=== PATIENT | female | born 1950 | race Caucasian/White ===

== ENCOUNTER → 2016-06-29 | Outpatient (CLI) | payer BC ==
--- NOTE | 2016-06-29 11:29 | US ---
EXAMINATION TYPE: US abdomen complete DATE OF EXAM: 06/29/2016 11:07 AM COMPARISON: CT on PACS CLINICAL HISTORY: R10.9 Abd Pain. mid abd pain with nausea x 3 days; prior Whipple procedure via midl ine abd incision; gallbladder removed EXAM MEASUREMENTS: Liver Length: 11.5 Gallbladder Wall: Surgically absent CBD: 0.4m Spleen: 8.8m Right Kidney: 9.5 x 4.1 x 3.7cm Left Kidney: 9.8 x 4.4 x 4.5cm Findings: Pancreas: wnl Liver: homogeneous with periportal wall brightness Gallbladder: Surgically absent Evidence for sonographic Toribio's sign: No CBD: wnl Spleen: wnl Right Kidney: mid cortical cyst = 1.0 x 0.9 x 0.9cm Left Kidney: No hydronephrosis or masses seen Upper IVC: wnl Abd Aorta: size is wnl; intimal wall changes noted mid aorta and in left JOJO At patient's area of complaint bowel gas is noted. The liver is homogenous. The intrahepatic portion of the IVC and proximal abdominal aorta are within normal limits. The gallbladder is surgically absent. Common bile duct is unremarkable. The visualiz ed portions of the pancreas are homogenous. The spleen is unremarkable. Kidneys are symmetric and f ree of hydronephrosis. IMPRESSION: 1. simple cyst right kidney.
== END | disposition home or self-care (01) ==
LOC: RADUSWWP 09:52
PROVIDERS: ATTEND Family Medicine
DX: N28.1 Cyst of kidney, acquired (principal); R10.9 Unspecified abdominal pain
CPT/HCPCS: 76700

== ENCOUNTER 2016-07-21 09:55 | Day surgery (SDC) | payer BC ==
[2016-07-19 09:17] VITALS: BMI 20.3
[~2016-07-21 09:55] MED LIST: LACTATED RINGERS 1,000 ML IV SCH; LIDOCAINE 1% 20 ML VIAL (10MG/ML) FOR IV START INTRADERMA PRN
[2016-07-21 10:30] VITALS: RESP 16; TEMP 97.4
[2016-07-21] MEDS ORDERED: LIDOCAINE 1% INJ 10MG/ML (20 ML MDV) ONE (10:52)
[2016-07-21] MEDS ORDERED: PROPOFOL 10 MG/ML 20 ML VIAL IV ONE (10:52)
--- NOTE | 2016-07-21 11:09 | P.PCN ---
Date of Procedure: 07/21/16 Procedure(s) Performed: BRIEF HISTORY: Patient is a 65-year-old, pleasant, white female, scheduled for an upper endoscopy as a part of evaluation of epigastric pain for the last few years duration. The patient has prior history of Whipple surgery for duodenal ampullary adenoma in 2010. Since then she is been having intermittent episodes of epigastric discomfort and is being maintained on proton pump inhibitors on and off for the last 3 years. PROCEDURE PERFORMED: Esophagogastroduodenoscopy with biopsy. PREOPERATIVE DIAGNOSIS: Epigastric pain IV sedation per anesthesia. PROCEDURE: After informed consent was obtained, the patient was brought into the endoscopy unit. IV conscious sedation was administered by Anesthesia under continuous monitoring. Initially the Olympus GIF-140 video endoscope was inserted into the mouth. Esophagus intubated without any difficulty. It was gradually advanced into the stomach and there was evidence of distal antrectomy noted. The anastomosis showed mild irritation and erythema of the mucosa and biopsies were done from this area. The Vasyl-en-Y anastomosis appeared normal and the afferent and efferent loops also appeared normal.at this time the scope was withdrawn into the stomach, and upon careful examination, mucosa of the body , cardia and the fundus and mild gastritis and biopsies were also done from this area. The scope was then withdrawn into the esophagus. The GE junction was located at 39 cm from the incisors. The esophagus appeared normal. There were no erosions or ulcerations seen and the patient tolerated the procedure well. IMPRESSION: 1. Mild diffuse gastritis 2. Evidence of prior distal antrectomy with Vasyl-en-Y anastomosis appears normal. RECOMMENDATIONS: The findings of this examination were discussed with the patient as well as her family. She was advised to follow with the biopsy results. Centimeter she will continue with the current medications and follow antireflux measures.
[2016-07-21 12:15] VITALS: BP 132/61; PULSE 53
== END 2016-07-21 12:29 | disposition home or self-care (01) ==
LOC: ORWHC2ENDO 09:55
PROVIDERS: ATTEND Internal Medicine Gastroenterology
DX: K29.50 Unspecified chronic gastritis without bleeding (principal); K21.9 Gastro-esophageal reflux disease without esophagitis; E78.5 Hyperlipidemia, unspecified; I49.9 Cardiac arrhythmia, unspecified; Z88.2 Allergy status to sulfonamides; Z88.0 Allergy status to penicillin; Z88.5 Allergy status to narcotic agent; Z88.8 Allergy status to other drugs, medicaments and biological substances; Z79.899 Other long term (current) drug therapy; Z86.018 Personal history of other benign neoplasm; Z90.3 Acquired absence of stomach [part of]
CPT/HCPCS: 88305; 88342; 43239; J2001; J2704; 99153

== ENCOUNTER → 2016-09-15 | Outpatient (CLI) | payer MEDICARE ==
[2016-09-15 12:52] LABS: Basophils % (A) 0 %; CH 26.7; Eosinophils # (A) 0.1 k/uL (0-0.7); Eosinophils % (A) 1 %; HCT 41.4 % (34.0-46.0); Hypochromasia Slight; Luc # (Auto) 0.06; Luc % (Auto) 1; Lymphocytes # (A) 1.2 k/uL (1.0-4.8); Lymphocytes % (A) 27 %; MCH 27.2 pg (25.0-35.0); MCHC 31.4 g/dL (31.0-37.0); MCV 86.5 fL (80.0-100.0); Mean Platelet Volume 7.2; Monocytes # (A) 0.2 k/uL (0-1.0); Monocytes % (A) 4 %; Neutrophils % (A) 66 %; RBC 4.79 m/uL (3.80-5.40); RDW 13.9 % (11.5-15.5); WBC 4.6 k/uL (3.8-10.6); WBC (Perox) 4.48
[2016-09-15 13:03] LABS: Cholesterol 208 mg/dL (<200); HDL Cholesterol 54 mg/dL (40-60); Triglycerides 76 mg/dL (<150)
[2016-09-15 13:45] LABS: Iron 94 ug/dL (37-170)
[2016-09-15 13:53] LABS: Hepatitis C Virus IgG Ab Negative (Negative)
[2016-09-15 13:54] LABS: % Iron Saturation 23.6 % (20-50); Total Iron Binding Capacity 399 ug/dL (265-497)
[2016-09-15 16:29] LABS: Hepatitis C Virus IgG Index 0.02
== END | disposition home or self-care (01) ==
LOC: LABWHC1 12:09
PROVIDERS: ATTEND Internal Medicine
DX: Z13.9 Encounter for screening, unspecified (principal); E55.9 Vitamin D deficiency, unspecified; R79.0 Abnormal level of blood mineral; Z13.6 Encounter for screening for cardiovascular disorders
CPT/HCPCS: 36415; 80061; 82306; 83540; 83550; 85025; 86803

== ENCOUNTER → 2017-02-28 | Outpatient (CLI) | payer MEDICARE ==
--- NOTE | 2017-02-28 08:05 | US ---
EXAMINATION TYPE: US transvaginal DATE OF EXAM: 02/28/2017 COMPARISON: Pelvic ultrasound January 22, 2012 CLINICAL HISTORY: R10.2 Pelvic pain. Right sided pelvic pain during physical exam, patient does have know hernia on the right inguinal canal pending repair Mar 2017 TECHNIQUE: TV Date of LMP: 15+ years ago EXAM MEASUREMENTS: Uterus: 4.7 x 3.4 x 2.9 cm Endometrial Stripe: 0.5 cm Right Ovary: not seen Left Ovary: not seen 1. Uterus: Anteverted wnl 2. Endometrium: wnl 3. Right Ovary: not seen due to atrophy and bowel gas 4. Left Ovary: not seen due to atrophy and bowel gas 5. Bilateral Adnexa: wnl 6. Posterior cul-de-sac: wnl Uterus is heterogeneous in appearance. No free fluid is seen in pelvic cul-de-sac. Endometrium is not well seen presumed atrophic. Neither ovary identified. IMPRESSION: No significant finding is seen on this study to account for patient's symptoms.
== END | disposition home or self-care (01) ==
LOC: RADUSWWP 06:45
PROVIDERS: ATTEND Obstetrics & Gynecology
DX: R10.2 Pelvic and perineal pain (principal)
CPT/HCPCS: 76830

== ENCOUNTER → 2017-03-23 | Outpatient (CLI) | payer MEDICARE ==
--- NOTE | 2017-03-23 09:04 | BD ---
EXAMINATION TYPE: MG DEXA axial skeleton. DATE OF EXAM: 03/23/2017 COMPARISON: 01/19/2015 CLINICAL HISTORY: Height: 63.2 IN Weight: 109 LBS FRAX RISK QUESTIONS: Alcohol (3 or more units per day): NO Family History (Parent hip fracture): NO Glucocorticoids (More than 3mos): NO (Ex: prednisone, prednisolone, methylprednisolone, dexamethasone, and hydrocortisone). History of Fracture in Adulthood: YES LEFT RIB AGE 51 Secondary Osteoporosis: 1. Type 1 Diabetes: NO 2. Hyperthyroidism: NO 3. Menopause before 45: NO 4. Malnutrition: NO 5. Chronic liver disease: NO Rheumatoid Arthritis: NO Current Tobacco Use: NO RISK FACTORS HISTORY OF: Active: YES Diet low in dairy products/other sources of calcium: YES Postmenopausal woman: AGE 49 MEDICATIONS: Additional Medications: VIT D, EXAM MEASUREMENTS: Bone mineral densitometry was performed using the [employer] System. Bone mineral density as measured about the Lumbar spine is: ----- L1-L4(G/cm2): 0.899 T Score Values are as follows: ----- L2: -2.8 ----- L3: -2.5 ----- L4: -2.4 ----- L1-L4: -2.3 Bone mineral density has: Decreased -4.5% since study of: 01/19/2015 Bone mineral density about the R hip (g/cm2): 0.898 Bone mineral density about the L hip (g/cm2): 0.847 T Score values are as follows: -----R Neck: -1.0 -----L Neck: -1.4 -----R Total: -1.5 -----L Total: -1.4 Bone mineral density has: Decreased -2.8% since study of: 01/19/2015 IMPRESSION: Severe osteopenia with localized osteoporosis involving the L2 vertebral body. NOTE: T-SCORE=SD OF THE YOUNG ADULT MEAN.
--- NOTE | 2017-03-26 13:14 | MM ---
Reason for exam: screening (asymptomatic). Last mammogram was performed 2 years and 2 months ago. History: Patient is postmenopausal. US discontinued breast bx LT of the left breast, February 18, 2015. Took hormonal contraceptives for 1 year beginning at age 21. Physical Findings: A clinical breast exam by your physician is recommended on an annual basis and results should be correlated with mammographic findings. MG Screening Mammo w CAD Bilateral CC and MLO view(s) were taken. Prior study comparison: February 03, 2015, left breast MG work up mamm w CAD LT. January 19, 2015, bilateral MG screening mammo w CAD. The breast tissue is heterogeneously dense. This may lower the sensitivity of mammography. Finding: There are few typically benign vascular, round, diffuse/scattered calcifications in both breasts. There is no discrete abnormality. Benign bilaterally axillary lymph nodes. ASSESSMENT: Benign, BI-RAD 2 RECOMMENDATION: Routine screening mammogram of both breasts in 1 year.
== END | disposition home or self-care (01) ==
LOC: RADMAMWWP 08:01
PROVIDERS: ATTEND Obstetrics & Gynecology
DX: Z12.31 Encounter for screening mammogram for malignant neoplasm of breast (principal); M85.88 Other specified disorders of bone density and structure, other site; M81.6 Localized osteoporosis [Lequesne]
CPT/HCPCS: 77080; G0202

== ENCOUNTER 2017-06-15 12:56 | Emergency (ER) | payer MEDICARE, OTHER ==
[2017-06-15 13:09] VITALS: RESP 16; TEMP 97.9
[2017-06-15] MEDS ORDERED: RX INFO: IV CONTRAST WAS GIVEN 1 EACH MISC MISCELLANE PRN (13:19)
[2017-06-15] MEDS ORDERED: SODIUM CHLORIDE 0.9% 500 ML IV STA (13:19)
[2017-06-15 14:00] LABS: Basophils % (A) 0 %; Eosinophils # (A) 0.1 k/uL (0-0.7); Eosinophils % (A) 1 %; HCT 43.1 % (34.0-46.0); HGB 13.3 gm/dL (11.4-16.0); Lymphocytes # (A) 1.5 k/uL (1.0-4.8); Lymphocytes % (A) 28 %; MCH 25.9 pg (25.0-35.0); MCV 83.8 fL (80.0-100.0); Mean Platelet Volume 7.7; Monocytes # (A) 0.3 k/uL (0-1.0); Monocytes % (A) 5 %; Neutrophils # (A) 3.4 k/uL (1.3-7.7); Neutrophils % (A) 64 %; Platelet Count 296 k/uL (150-450); RBC 5.14 m/uL (3.80-5.40); RDW 14.4 % (11.5-15.5); WBC 5.3 k/uL (3.8-10.6)
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
[2017-06-15 14:05] LABS: Prothrombin Time 9.6 sec (9.0-12.0)
[2017-06-15 14:07] LABS: ALT 38 U/L (9-52); AST 28 U/L (14-36); Albumin 4.4 g/dL (3.5-5.0); Alkaline Phosphatase 80 U/L (38-126); Amylase 78 U/L (30-110); Anion Gap 7 mmol/L; Blood Urea Nitrogen 14 mg/dL (7-17); Calcium 9.6 mg/dL (8.4-10.2); Carbon Dioxide 29 mmol/L (22-30); Chloride 104 mmol/L (98-107); Glucose 84 mg/dL (74-99); Lipase 81 U/L (23-300); Potassium 3.8 mmol/L (3.5-5.1); Sodium 140 mmol/L (137-145); Total Bilirubin 0.4 mg/dL (0.2-1.3); Total Protein 7.1 g/dL (6.3-8.2)
[2017-06-15 14:12] LABS: Appearance,Urine Clear (Clear); Bilirubin,Urine Negative (Negative); Blood,Urine Trace (Negative); Color,Urine Light Yellow; Glucose,Urine (UA) Negative (Negative); Ketones,Urine Negative (Negative); Leukocyte Esterase,Urine Negative (Negative); Mucus,Urine Rare /hpf; Nitrite,Urine Negative (Negative); PH, Urine 5.5 (5.0-8.0); Protein,Urine Negative (Negative); RBC,Urine 1 /hpf (0-5); Specific Gravity,Urine 1.007 (1.001-1.035); Squamous Epithelial Cell,Urine <1 /hpf (0-4); Urobilinogen,Urine <2.0 mg/dL (<2.0); WBC,Urine 1 /hpf (0-5)
[2017-06-15 15:11] VITALS: BP 150/69; PULSE 70
--- NOTE | 2017-06-15 15:13 | CT ---
EXAMINATION TYPE: CT abdomen pelvis w con DATE OF EXAM: 06/15/2017 COMPARISON: NONE HISTORY: Abd pain following an injury x2 days ago. Recent hernia surgery on 05/17/17 CT DLP: 343.4 mGycm Automated exposure control for dose reduction was used. TECHNIQUE: Helical acquisition of images from the lung bases through the pelvis have been completed. CONTRAST: Performed without Oral Contrast and with IV Contrast, patient injected with 100ml mL of Omnipaque 300 . FINDINGS: LUNG BASES: No significant abnormality is appreciated. AORTA: No significant abnormality is appreciated. LIVER/GB: Pneumobilia is present. Patient is post cholecystectomy. PANCREAS: Calcification again noted at the head of the pancreas. SPLEEN: No significant abnormality is seen. ADRENALS: No significant abnormality is seen. KIDNEYS: Cortical cyst at the upper pole has increased in size and measures 11 mm, extrarenal pelves are present bilaterally REPRODUCTIVE ORGANS: Intense enhancement seen in the adnexal veins is likely within normal limits. BOWEL: Surgical clips are present in the right lower quadrant, the appendix is normal. No evident zhang wel obstruction. Some metallic densities present along the region of the lesser curvature of the stom ach and proximal small bowel FREE AIR: No Free Air visible. ASCITES: None visible. PELVIC ADENOPATHY: None visualized. RETROPERITONEAL ADENOPATHY: No Retroperitoneal Adenopathy visible. URINARY BLADDER: No significant abnormality is seen. OSSEOUS STRUCTURES: No significant abnormality is seen. IMPRESSION: PNEUMOBILIA HAS INCREASED SOMEWHAT IN THE INTERVAL. POSTOP CHANGES. INDETERMINATE CALCIFICATIONS AT T HE HEAD OF THE PANCREAS SIMILAR TO PRIOR.
== END 2017-06-15 15:45 | disposition home or self-care (01) ==
LOC: EC 12:56
DX: R10.11 Right upper quadrant pain (principal); R10.31 Right lower quadrant pain; Z87.891 Personal history of nicotine dependence; Z90.49 Acquired absence of other specified parts of digestive tract; Z98.890 Other specified postprocedural states; Z88.5 Allergy status to narcotic agent; Z88.1 Allergy status to other antibiotic agents; Z88.2 Allergy status to sulfonamides; Z88.6 Allergy status to analgesic agent; Z88.0 Allergy status to penicillin; Z88.8 Allergy status to other drugs, medicaments and biological substances; Z79.899 Other long term (current) drug therapy; W51.XXXA Accidental striking against or bumped into by another person, initial encounter; Y99.0 Civilian activity done for income or pay; Y93.89 Activity, other specified; Y92.69 Other specified industrial and construction area as the place of occurrence of the external cause
CPT/HCPCS: 99284; 96360; 96361; 36415; 80053; 82150; 83690; 85025; 85610; 85730; 81001; 74177; Q9967

== ENCOUNTER → 2017-06-18 | Outpatient (CLI) | payer OTHER ==
--- NOTE | 2017-06-18 14:44 | XR ---
EXAMINATION TYPE: XR lumbar spine 2 or 3V DATE OF EXAM: 06/18/2017 CLINICAL HISTORY: pain TECHNIQUE: Three views of the lumbar spine are submitted. COMPARISON: None. FINDINGS: There are 5 lumbar type vertebral bodies identified. Mild curvature convex to the right. No evidence for compression fracture. Vertebral body heights are within normal limits. Mild degenerative disc s pace narrowing and spondylosis lower lumbar spine. Facet joint arthropathy. The overlying soft tissu e appears unremarkable. IMPRESSION: No acute fracture or dislocation is seen in the lumbar spine. ICD 10 NO FRACTURE, INITIAL EVALUATION
--- NOTE | 2017-06-18 14:46 | XR ---
EXAMINATION TYPE: XR cervical spine comp DATE OF EXAM: 06/18/2017 COMPARISON: NONE HISTORY: Pain TECHNIQUE: Four views are submitted. FINDINGS: The odontoid is intact. There are no compression deformities. The prevertebral soft tissue structur es are within normal limits. Calcification soft tissue the neck and left neck likely related carotid artery calcification. Degenerative disc disease is seen at levels C4-C7. Within the right apex is a vague area of nodular density. IMPRESSION: 1. Multilevel mild to moderate degenerative disc disease. 2. There is a vague nodular density in the right lung apex for which an apical lordotic view and val dard PA and lateral views of the chest are recommended..
== END | disposition home or self-care (01) ==
LOC: RADXRMAIN 14:12
PROVIDERS: ATTEND Emergency Medicine
DX: S13.4XXD Sprain of ligaments of cervical spine, subsequent encounter (principal); M45.5 Ankylosing spondylitis of thoracolumbar region
CPT/HCPCS: 72050; 72100

== ENCOUNTER → 2017-06-22 | Outpatient (CLI) | payer OTHER ==
--- NOTE | 2017-06-22 09:23 | XR ---
EXAMINATION TYPE: XR Hip Complete RT DATE OF EXAM: 06/22/2017 COMPARISON: NONE HISTORY: Pain TECHNIQUE: 2 views submitted FINDINGS: There is no evidence of erosive change or acute fracture. Mild axial narrowing of the joint space. Previous surgery involving the pelvis noted. SI joint appear s patent. IMPRESSION: 1. No evidence of acute fracture or dislocation. 2. Arthropathy of the hip joint.
== END | disposition home or self-care (01) ==
LOC: RADXRMAIN 06:33
PROVIDERS: ATTEND Emergency Medicine
DX: M12.9 Arthropathy, unspecified (principal)
CPT/HCPCS: 73502

== ENCOUNTER → 2017-07-06 | Outpatient (CLI) | payer MEDICARE ==
[2017-07-06 08:27] LABS: Blood Urea Nitrogen 24 mg/dL (7-17)
--- NOTE | 2017-07-06 12:14 | CT ---
EXAMINATION TYPE: CT chest w con DATE OF EXAM: 07/06/2017 COMPARISON: 03/06/2016 HISTORY: Solitary Pulmonary Nodule CT DLP: 123.3 mGycm, Automated exposure control for dose reduction was used. CONTRAST: Performed injected with 100 mL of Omnipaque 300. TECHNIQUE: Axial images were obtained at 5 mm thick sections. Reconstructed images are reviewed on [employer] computer in the coronal plane. FINDINGS: There is heterogeneity within the inferior portion of the thyroid lobes. No suspicious lung nodules or focal infiltrates are present. No enlarged mediastinal or hilar adenopathy is evident. The ascending aorta diameter at the level o f the main pulmonary artery is 2.7 cm. The main pulmonary artery diameter at the bifurcation is 2.[address] sections are obtained through the upper abdomen. Abdomen is essentially unremarkable. IMPRESSIONS: 1. No acute pulmonary process. 2. Previously identified nodularity at the lung bases is not as apparent on the current examination.
== END | disposition home or self-care (01) ==
LOC: RADCTMAIN 07:35
PROVIDERS: ATTEND Internal Medicine
DX: R91.1 Solitary pulmonary nodule (principal)
CPT/HCPCS: 82565; 84520; 71260; 36415; Q9967

== ENCOUNTER → 2017-09-28 | Outpatient (CLI) | payer MEDICARE ==
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
== END | disposition home or self-care (01) ==
LOC: RADMRIMAIN 11:28
PROVIDERS: ATTEND Internal Medicine
DX: R90.89 Other abnormal findings on diagnostic imaging of central nervous system (principal); R51 Headache
CPT/HCPCS: 70553; 72141; A9581

== ENCOUNTER → 2017-10-04 | Outpatient (CLI) | payer MEDICARE ==
--- NOTE | 2017-10-05 07:12 | US ---
EXAMINATION TYPE: US thyroid st tissue head/neck DATE OF EXAM: 10/04/2017 COMPARISON: MRI CLINICAL HISTORY: E04.1 nontoxic single thyroid nodule. GLAND SIZE: Right Lobe: 5.7 x 1.5 x 1.3 cm Overall Parenchyma: homogenous Left Lobe: 4.5 x 1.0 x 0.9 cm Overall Parenchyma: homogeneous Isthmus Thickness: 0.2 cm NODULES RIGHT: # of nodules measured on right: 1 1. 2.2 X 1.3 x 1.1 cm isoechoic solid nodule at the lower pole with well-defined margins; . This n odule is taller than wide and shows no intranodular vascularity. Prior size: no prior LEFT: # of nodules measured on left: 1 1. 0.9 X 0.7 x 0.6 cm isoechoic solid nodule at the lower pole with poorly defined margins; . This nodule is wider than tall and shows intranodular vascularity. Prior size: no prior ISTHMUS: # of nodules measured in the isthmus: 1 1. 0.6 X 0.3 x 0.9 cm hypoechoic solid nodule at the left isthmus pole with well-defined margins; . This nodule is wider than tall and shows intranodular vascularity. Prior size: no prior Bilateral neck scanned, no evidence of lymphadenopathy. nodules as descaribed IMPRESSION: Nonspecific nodularity as discussed above.
== END | disposition home or self-care (01) ==
LOC: RADUSWWP 16:41
PROVIDERS: ATTEND Internal Medicine
DX: E04.1 Nontoxic single thyroid nodule (principal)
CPT/HCPCS: 76536

== ENCOUNTER 2017-10-24 12:18 | Day surgery (SDC) | payer MEDICARE ==
[2017-10-24 13:12] VITALS: RESP 16; TEMP 97.6
[2017-10-24 14:16] VITALS: BP 141/63; PULSE 62
--- NOTE | 2017-10-24 14:49 | US ---
EXAMINATION TYPE: US FNA thyroid DATE OF EXAM: 10/24/2017 COMPARISON: Thyroid ultrasound dated 10/04/2017 HISTORY: Thyroid nodule. Maximal barrier technique was utilized. After informed consent, skin overlying the lesion was locali zed with ultrasound and the overlying skin prepped and draped. Ultrasound was utilized using sterile technique. Lidocaine was used for local anesthesia. Five passes with a 25-gauge needle were made int o the nodule and aspirated specimen was submitted to cytology. Following the procedure hemostasis ac hieved. No immediate complication. The patient discharged in stable condition. IMPRESSION: STATUS POST ULTRASOUND GUIDED FINE NEEDLE ASPIRATION OF THYROID NODULE, PATHOLOGY IS PEND ING. THIS PROCEDURE WAS PERFORMED BY THE UNDERSIGNED.
== END 2017-10-24 14:10 | disposition home or self-care (01) ==
LOC: RADPROMAIN 12:18
PROVIDERS: ATTEND Internal Medicine
DX: E04.1 Nontoxic single thyroid nodule (principal)
CPT/HCPCS: 10022; 76942; 88173; 88305

== ENCOUNTER → 2018-01-24 | Outpatient (CLI) | payer MEDICARE ==
[2018-01-24 17:47] LABS: Basophils % (A) 0 %; Eosinophils # (A) 0.1 k/uL (0-0.7); Eosinophils % (A) 1 %; HCT 40.9 % (34.0-46.0); HGB 12.5 gm/dL (11.4-16.0); Lymphocytes # (A) 1.5 k/uL (1.0-4.8); Lymphocytes % (A) 22 %; MCH 26.3 pg (25.0-35.0); MCHC 30.6 g/dL (31.0-37.0); MCV 85.8 fL (80.0-100.0); Monocytes # (A) 0.3 k/uL (0-1.0); Monocytes % (A) 5 %; Neutrophils # (A) 4.6 k/uL (1.3-7.7); Neutrophils % (A) 70 %; Platelet Count 260 k/uL (150-450); RBC 4.77 m/uL (3.80-5.40); RDW 13.4 % (11.5-15.5); WBC 6.6 k/uL (3.8-10.6)
[2018-01-24 18:00] LABS: ALT 37 U/L (9-52); AST 31 U/L (14-36); Albumin 4.2 g/dL (3.5-5.0); Alkaline Phosphatase 82 U/L (38-126); Amylase 62 U/L (30-110); Anion Gap 6 mmol/L; Blood Urea Nitrogen 19 mg/dL (7-17); Calcium 9.2 mg/dL (8.4-10.2); Carbon Dioxide 25 mmol/L (22-30); Chloride 108 mmol/L (98-107); Glucose 79 mg/dL (74-99); Lipase 65 U/L (23-300); Potassium 4.3 mmol/L (3.5-5.1); Sodium 139 mmol/L (137-145); Total Bilirubin 0.6 mg/dL (0.2-1.3); Total Protein 6.9 g/dL (6.3-8.2)
[2018-01-24 18:40] LABS: Erythrocyte Sedimentation Rate 9 mm/hr (0-20)
== END | disposition home or self-care (01) ==
LOC: LABWHC1 16:56
PROVIDERS: ATTEND Physician Assistant
DX: R10.9 Unspecified abdominal pain (principal)
CPT/HCPCS: 36415; 80053; 82150; 83690; 85025; 85652

== ENCOUNTER → 2018-01-25 | Outpatient (CLI) | payer MEDICARE ==
--- NOTE | 2018-01-25 17:24 | US ---
EXAMINATION TYPE: US abdomen complete DATE OF EXAM: 01/25/2018 COMPARISON: 21/11/2016 CLINICAL HISTORY: R10.11 epigastric abdominal pain. h/o whipple, cholecystectomy, renal stone, hernia repair repair, low back pain, nausea EXAM MEASUREMENTS: Liver Length: 12.3 cm Gallbladder Wall: Surgically absent CBD: 0.5 cm Spleen: 9.6 cm Right Kidney: 9.5 x 5.0 x 4.2 cm Left Kidney: 9.8 x 3.6 x 5.2 cm patient ate 4.5 hours ago, overlying bowel gas limits exam Pancreas: appears wnl Liver: wnl Gallbladder: Surgically absent Evidence for sonographic Toribio's sign: no CBD: wnl Spleen: wnl Right Kidney: mild hydronephrosis seen, 1.1cm upper pole cyst seen Left Kidney: wnl Upper IVC: wnl Abd Aorta: wnl There is no ascites. IMPRESSION: Limited exam. Postop change. Mild right-sided hydronephrosis, interval finding.
--- NOTE | 2018-01-25 17:33 | US ---
EXAMINATION TYPE: US pelvic complete DATE OF EXAM: 01/25/2018 COMPARISON: NONE CLINICAL HISTORY: R10.11 epigastric abdominal pain. low back pain TECHNIQUE: TA. Date of LMP: 18+ years ago EXAM MEASUREMENTS: Uterus: 4.3 x 3.1 x 2.7 cm Endometrial Stripe: unable to discern Right Ovary: N/A Left Ovary: 1.8 x 2.0 x 2.1 cm *peristalsing, fluid filled bowel limits exam 1. Uterus: Anteverted wnl 2. Endometrium: unable to discern 3. Right Ovary: not seen due to bowel gas 4. Left Ovary: wnl 5. Bilateral Adnexa: peristalsing bowel 6. Posterior cul-de-sac: wnl IMPRESSION: Atrophic uterus. No adnexal mass or free fluid.
== END | disposition home or self-care (01) ==
LOC: RADUSMAIN 16:26
PROVIDERS: ATTEND Physician Assistant
DX: N13.30 Unspecified hydronephrosis (principal); N85.8 Other specified noninflammatory disorders of uterus; Z98.890 Other specified postprocedural states
CPT/HCPCS: 76700; 76856

== ENCOUNTER → 2018-04-08 | Outpatient (CLI) | payer MEDICARE ==
--- NOTE | 2018-04-09 10:25 | MM ---
Reason for exam: screening (asymptomatic). Last mammogram was performed 1 year and 1 month ago. History: Patient is postmenopausal. US discontinued breast bx LT of the left breast, February 18, 2015. Took hormonal contraceptives for 1 year beginning at age 21. Physical Findings: A clinical breast exam by your physician is recommended on an annual basis and results should be correlated with mammographic findings. MG 3D Screening Mammo W/Cad Bilateral CC and MLO view(s) were taken. Prior study comparison: March 23, 2017, bilateral MG screening mammo w CAD. February 08, 2016, mammogram, performed at [facility]. The breast tissue is heterogeneously dense. This may lower the sensitivity of mammography. There are benign appearing round vascular calcifications bilaterally. There is no discrete abnormality. ASSESSMENT: Benign, BI-RAD 2 RECOMMENDATION: Routine screening mammogram of both breasts in 1 year.
== END | disposition home or self-care (01) ==
LOC: RADMAMWWP 06:56
PROVIDERS: ATTEND Obstetrics & Gynecology
DX: Z12.31 Encounter for screening mammogram for malignant neoplasm of breast (principal)
CPT/HCPCS: 77063; 77067

== ENCOUNTER 2018-04-19 11:16 | Inpatient (IN) | payer MEDICARE ==
--- NOTE | 2018-04-19 11:52 | ED ---
Chest Pain HPI - General Chief Complaint: Chest Pain Stated Complaint: Chest pain Time Seen by Provider: 04/19/18 11:33 Source: patient, RN notes reviewed Mode of arrival: ambulatory - History of Present Illness Initial Comments: This is a 67-year-old female with a history of a Whipple procedure done on 2010 who presents with complaints of the onset of retrosternal chest pain some nausea she states it's somewhat achy 7/10 severity gets worse with bending over no fevers chills no sweats no overt shortness of breath is started around 10 AM or shortly thereafter this morning. She's never had problems with this before no history of heart or lung disease she is a former smoker who quit many years ago. She had no apparent problems since he Whipple procedure. MD Complaint: chest pain - Related Data Home Medications Medication Instructions Recorded Confirmed ALPRAZolam [Xanax] 0.25 mg PO DAILY PRN 07/19/16 04/19/18 Cholecalciferol [Vitamin D3] 1,000 unit PO DAILY 06/15/17 04/19/18 Hyoscyamine Sulfate [Levsin-Sl] 0.125 mg SL Q3H PRN 04/19/18 04/19/18 Pantoprazole Sodium [Protonix] 40 mg PO BID 04/19/18 04/19/18 Allergies Allergy/AdvReac Type Severity Reaction Status Date / Time hydromorphone HCl Allergy Chest Pain Verified 04/19/18 11:52 [From Dilaudid] levofloxacin [From Levaquin] Allergy Unknown Verified 04/19/18 11:52 Sulfa (Sulfonamide Allergy Unknown Verified 04/19/18 11:52 Antibiotics) acetaminophen AdvReac ELEVATED Verified 04/19/18 11:52 [From Tylenol-Codeine #3] LIVER ENZYMES amoxicillin trihydrate AdvReac Chest Pain Verified 04/19/18 11:52 [From Augmentin] caffeine AdvReac Rapid Verified 04/19/18 11:52 Heart Rate codeine phosphate AdvReac Nausea & Verified 04/19/18 11:52 [From Tylenol-Codeine #3] Vomiting morphine AdvReac Nausea & Verified 04/19/18 11:52 Vomiting potassium clavulanate AdvReac Chest Pain Verified 04/19/18 11:52 [From Augmentin] Review of Systems ROS Statement: Those systems with pertinent positive or pertinent negative responses have been documented in the HPI. ROS Other: All systems not noted in ROS Statement are negative. EKG Findings - EKG Results: EKG: interpreted by SAUL, sinus rhythm (E[place] [address] QRS duration 82 daily since QTC 492/461 no definite acute changes) Past Medical History Past Medical History: Hyperlipidemia Additional Past Medical History / Comment(s): palpatations,BACK PAIN, History of Any Multi-Drug Resistant Organisms: None Reported Past Surgical History: Cholecystectomy, Hernia Repair, Tubal Ligation Additional Past Surgical History / Comment(s): Whipple Procedure, Lipoma removed from left leg and under breasts, ERCP Past Anesthesia/Blood Transfusion Reactions: No Reported Reaction Past Psychological History: Anxiety, Panic Disorder Smoking Status: Former smoker Past Alcohol Use History: None Reported Past Drug Use History: None Reported - Past Family History Brother(s) Family Medical History: Myocardial Infarction ([place]) Additional Family Medical History / Comment(s): at age 56 Sister(s) Family Medical History: Cancer Additional Family Medical History / Comment(s): LYMPHOMA General Exam - General Exam Comments Initial Comments: This a well up well-nourished awake alert oriented 3 female General appearance: alert, anxious Head exam: Present: atraumatic, normocephalic, normal inspection Eye exam: Present: normal appearance, PERRL, EOMI. Absent: scleral icterus, conjunctival injection, periorbital swelling ENT exam: Present: normal exam, mucous membranes moist Neck exam: Present: normal inspection, full ROM, other (No stridor JVD or bruits ). Absent: tenderness, meningismus, lymphadenopathy Respiratory exam: Present: normal lung sounds bilaterally. Absent: respiratory distress, wheezes, rales, rhonchi, stridor, chest wall tenderness Cardiovascular Exam: Present: regular rate, normal rhythm, normal heart sounds. Absent: systolic murmur, diastolic murmur, rubs, gallop, clicks GI/Abdominal exam: Present: soft, normal bowel sounds. Absent: distended, tenderness, guarding, rebound, rigid, bruit, pulsatile mass, hernia Extremities exam: Present: normal inspection, full ROM, normal capillary refill. Absent: tenderness, pedal edema, joint swelling, calf tenderness Back exam: Present: normal inspection Neurological exam: Present: alert, oriented X3, CN II-XII intact Psychiatric exam: Present: normal affect, normal mood Skin exam: Present: warm, dry, intact, normal color. Absent: rash Course Vital Signs 04/19/18 04/19/18 04/19/18 11:23 11:51 12:25 Temperature 97.9 F Pulse Rate 56 L 57 L Pulse Rate [ 76 Bilateral Sitting Radial] Respiratory 18 18 Rate Blood Pressure 147/58 181/82 O2 Sat by Pulse 98 100 Oximetry - Reevaluation(s) Reevaluation #1: 04/19/18 14:04 Reevaluation patient reveals no definite change in status her pain is no better or worse. After discussion the patient and her patient will be admitted for evaluation of chest pain Chest Pain MDM - MDM X-rays nonspecific EKG is negative the patient will be admitted for evaluation of chest pain. Disposition Clinical Impression: Unstable angina pectoris, Chest pain Disposition: ADMITTED IP TO THIS [facility] Condition: Stable Referrals: Romero Stovall MD [Primary Care Provider] - 1-2 days
[2018-04-19] MEDS ORDERED: NITROGLYCERIN SL TABS 0.4 MG TAB SUBLINGUAL STA (12:00)
[2018-04-19 12:14] LABS: Basophils % (A) 0 %; Eosinophils # (A) 0.1 k/uL (0-0.7); Eosinophils % (A) 1 %; HCT 39.3 % (34.0-46.0); HGB 12.6 gm/dL (11.4-16.0); Lymphocytes # (A) 1.5 k/uL (1.0-4.8); Lymphocytes % (A) 27 %; MCH 27.1 pg (25.0-35.0); MCHC 32.2 g/dL (31.0-37.0); MCV 84.2 fL (80.0-100.0); Mean Platelet Volume 6.9; Monocytes # (A) 0.3 k/uL (0-1.0); Monocytes % (A) 5 %; Neutrophils # (A) 3.6 k/uL (1.3-7.7); Neutrophils % (A) 64 %; Platelet Count 282 k/uL (150-450); RBC 4.66 m/uL (3.80-5.40); RDW 13.2 % (11.5-15.5); WBC 5.5 k/uL (3.8-10.6)
[2018-04-19 12:31] LABS: D-Dimer 0.34 mg/L FEU (<0.60); Partial Thromboplastin Time 26.9 sec (22.0-30.0); Prothrombin Time 9.7 sec (9.0-12.0)
[2018-04-19 12:34] LABS: ALT 27 U/L (9-52); AST 29 U/L (14-36); Albumin 4.1 g/dL (3.5-5.0); Alkaline Phosphatase 83 U/L (38-126); Amylase 68 U/L (30-110); Anion Gap 9 mmol/L; Blood Urea Nitrogen 20 mg/dL (7-17); Calcium 9.2 mg/dL (8.4-10.2); Carbon Dioxide 24 mmol/L (22-30); Chloride 107 mmol/L (98-107); Glucose 99 mg/dL (74-99); Lipase 58 U/L (23-300); Potassium 3.8 mmol/L (3.5-5.1); Sodium 140 mmol/L (137-145); Total Bilirubin 0.5 mg/dL (0.2-1.3); Total Protein 6.9 g/dL (6.3-8.2)
--- NOTE | 2018-04-19 12:38 | XR ---
EXAMINATION TYPE: XR chest 2V DATE OF EXAM: 04/19/2018 COMPARISON: 07/06/2017 TECHNIQUE: PA and lateral views submitted. HISTORY: Chest pain FINDINGS: The lungs are clear and there is no pneumothorax, pleural effusion, or focal pneumonia. Hyperinflat ion noted. Hypertrophic change of the spine. Surgical clips in the abdomen. No overt failure. Diffuse osteopenia. IMPRESSION: 1. No acute process. Hyperinflation suggests COPD.
[2018-04-19 12:44] LABS: Creatine Kinase 63 U/L (30-135)
[2018-04-19 12:57] LABS: Creatine Kinase MB 0.4 ng/mL (0.0-2.4); Troponin I <0.012 ng/mL (0.000-0.034)
[2018-04-19] MEDS ORDERED: HEPARIN SODIUM,PORCINE 5,000 UNIT/ML 1 ML VIAL IV ONE (14:05)
[2018-04-19] MEDS ORDERED: NITROGLYCERIN SL TABS 0.4 MG TAB SUBLINGUAL PRN (14:05)
[2018-04-19] MEDS ORDERED: HYOSCYAMINE ORAL DROPS 1.875 MG/15 ML BOTTLE SUBLINGUAL PRN (14:09)
[2018-04-19] MEDS ORDERED: ALPRAZolam 0.25 MG TAB PO PRN (14:09)
[2018-04-19] MEDS: HEPARIN SOD,PORK IN 0.45% NACL 25,000 UNIT in 0.45% NACL 1 500ML.BAG IV SCH (15:21)
[2018-04-19] MEDS: SODIUM CHLORIDE 0.9% 1,000 ML IV SCH (15:24)
[2018-04-19 18:27] LABS: Creatine Kinase MB 7.4 ng/mL (0.0-2.4)
[2018-04-19 18:37] LABS: Troponin I 0.647 ng/mL (0.000-0.034)
[2018-04-19] MEDS: NITROGLYCERIN OINT 1 INCH/GM PACKET TOPICAL SCH (19:17)
[2018-04-19] MEDS ORDERED: LIDOCAINE 1% INJ 10MG/ML (20 ML MDV) ONE ×2 (21:08→22:56)
[2018-04-19] MEDS ORDERED: MIDAZOLAM 2 MG/2 ML VIAL ONE ×2 (21:11→22:56)
[2018-04-19] MEDS ORDERED: VERAPAMIL 2.5 MG/ML 2 ML AMP ONE ×2 (21:11→22:56)
[2018-04-19] MEDS ORDERED: HEPARIN SODIUM 1,000 UN/ML (10ML VL) ONE ×2 (21:11→22:56)
[2018-04-19] MEDS ORDERED: IV FLUID CONTINUATION 1,000 ML IV ONE (23:18)
[2018-04-19] MEDS ORDERED: ASPIRIN 325 MG TAB PO ONE (23:20)
[2018-04-19] MEDS ORDERED: ASPIRIN 325 MG TAB ONE (23:22)
[2018-04-19] MEDS ORDERED: MIDAZOLAM 2 MG/2 ML VIAL IVP ONE (23:27)
[2018-04-19] MEDS ORDERED: LIDOCAINE 2% (PF) 20 MG/ML 2 ML AMP SQ ONE (23:32)
[2018-04-19] MEDS ORDERED: HEPARIN SODIUM 1,000 UN/ML (10ML VL) IV ONE (23:34)
[2018-04-19] MEDS: VERAPAMIL SYRINGE (5 MG/10 ML) INTRAARTER ONE ×2 (23:34→23:46)
[2018-04-19] MEDS ORDERED: IOPAMIDOL-370 125ML BTL INJ ONE (23:45)
--- NOTE | 2018-04-19 23:52 | P.CRDCN ---
History of Present Illness Consult date: 04/19/18 Chief complaint: Chest discomfort History of present illness: This is a pleasant 67-year-old female patient who I follow in the office as an outpatient with a past medical history significant for mild nonobstructive coronary artery disease based on heart catheterization was performed in 2015, known dyslipidemia on statin as an outpatient, as well as history of Whipple procedure was performed at the [facility], presented to the hospital complaining of chest discomfort. The patient described chest discomfort started this morning, as a dull pain across the chest, without any radiation to arm or neck or shoulders, and without any associated symptoms of shortness of breath, nausea, sweating, or shortness of breath. Because of that she decided to come to the emergency room. In the emergency room the EKG did not show any significant ST or T-wave abnormalities. The first set of cardiac enzymes came in to be unremarkable and the second set of enzymes came in to the slightly abnormal. Because the patient continues to have a chest discomfort in the emergency room, we decided to pursue with a heart catheterization. The patient underwent a heart catheterization and that revealed mild to moderate nonobstructive coronary artery disease involving the right coronary artery. The procedure was performed from the right radial artery. Overall the heart catheterization seems to be the same converted 2016. Overall the patient tolerated the procedure very well. Past Medical History Past Medical History: Hyperlipidemia Additional Past Medical History / Comment(s): palpatations,BACK PAIN, History of Any Multi-Drug Resistant Organisms: None Reported Past Surgical History: Cholecystectomy, Hernia Repair, Tubal Ligation Additional Past Surgical History / Comment(s): Whipple Procedure, Lipoma removed from left leg and under breasts, ERCP Past Anesthesia/Blood Transfusion Reactions: No Reported Reaction Past Psychological History: Anxiety, Panic Disorder Smoking Status: Former smoker Past Alcohol Use History: None Reported Past Drug Use History: None Reported - Past Family History Brother(s) Family Medical History: Myocardial Infarction ([place]) Additional Family Medical History / Comment(s): at age 56 Sister(s) Family Medical History: Cancer Additional Family Medical History / Comment(s): LYMPHOMA Medications and Allergies Home Medications Medication Instructions Recorded Confirmed Type ALPRAZolam [Xanax] 0.25 mg PO DAILY PRN 07/19/16 04/19/18 History Cholecalciferol [Vitamin D3] 1,000 unit PO DAILY 06/15/17 04/19/18 History Hyoscyamine Sulfate [Levsin-Sl] 0.125 mg SL Q3H PRN 04/19/18 04/19/18 History Pantoprazole Sodium [Protonix] 40 mg PO BID 04/19/18 04/19/18 History Allergies Allergy/AdvReac Type Severity Reaction Status Date / Time hydromorphone HCl Allergy Chest Pain Verified 04/19/18 11:52 [From Dilaudid] levofloxacin [From Levaquin] Allergy Unknown Verified 04/19/18 11:52 Sulfa (Sulfonamide Allergy Unknown Verified 04/19/18 11:52 Antibiotics) acetaminophen AdvReac ELEVATED Verified 04/19/18 11:52 [From Tylenol-Codeine #3] LIVER ENZYMES amoxicillin trihydrate AdvReac Chest Pain Verified 04/19/18 11:52 [From Augmentin] caffeine AdvReac Rapid Verified 04/19/18 11:52 Heart Rate codeine phosphate AdvReac Nausea & Verified 04/19/18 11:52 [From Tylenol-Codeine #3] Vomiting morphine AdvReac Nausea & Verified 04/19/18 11:52 Vomiting potassium clavulanate AdvReac Chest Pain Verified 04/19/18 11:52 [From Augmentin] Physical Exam Vitals: Vital Signs Temp Pulse Pulse Resp BP Pulse Ox 04/19/18 23:00 97.9 F 58 L 16 150/78 98 04/19/18 21:00 61 9 L 160/82 04/19/18 20:50 63 26 H 160/82 04/19/18 20:40 160/82 04/19/18 20:30 70 16 153/76 97 04/19/18 20:20 65 26 H 153/76 97 04/19/18 20:10 58 L 9 L 153/76 96 04/19/18 20:00 57 L 18 155/71 96 04/19/18 19:50 64 24 155/71 97 04/19/18 19:40 58 L 19 155/71 97 04/19/18 19:30 59 L 12 159/71 97 04/19/18 19:20 58 L 7 L 159/71 99 04/19/18 19:18 59 L 18 159/79 98 04/19/18 19:10 56 L 10 L 159/71 98 04/19/18 19:00 58 L 10 L 155/71 98 04/19/18 18:50 57 L 16 155/71 98 04/19/18 18:40 155/71 04/19/18 18:30 58 L 7 L 154/72 98 04/19/18 18:20 57 L 0 L 154/72 98 04/19/18 18:10 59 L 4 L 154/72 98 04/19/18 18:00 56 L 10 L 156/72 97 04/19/18 17:50 57 L 17 156/72 97 04/19/18 17:40 58 L 16 156/72 99 04/19/18 17:30 56 L 7 L 160/74 96 04/19/18 17:20 56 L 19 160/74 98 04/19/18 17:10 58 L 16 160/74 99 04/19/18 17:00 57 L 9 L 154/73 98 04/19/18 16:50 56 L 15 154/73 98 04/19/18 16:40 55 L 22 154/73 99 04/19/18 16:30 51 L 14 149/71 98 18 16:20 157/74 04/19/18 16:10 55 L 18 157/74 98 04/19/18 16:00 56 L 18 161/74 98 04/19/18 15:50 56 L 19 161/74 98 04/19/18 15:40 56 L 14 161/74 98 04/19/18 15:30 58 L 13 165/79 100 04/19/18 15:24 59 L 18 165/79 99 04/19/18 15:20 57 L 14 98 04/19/18 15:00 171/80 04/19/18 14:50 171/80 04/19/18 14:40 60 11 L 171/80 99 04/19/18 14:30 56 L 5 L 165/82 100 04/19/18 14:20 58 L 18 165/82 99 04/19/18 14:10 57 L 8 L 165/82 99 04/19/18 14:00 63 9 L 167/74 100 04/19/18 13:50 57 L 17 167/74 100 04/19/18 13:40 57 L 12 167/74 100 04/19/18 13:30 57 L 10 L 156/81 100 04/19/18 13:20 56 L 15 156/81 100 04/19/18 13:10 57 L 23 156/81 100 04/19/18 13:00 56 L 5 L 99 04/19/18 12:50 56 L 7 L 99 04/19/18 12:25 57 L 18 181/82 100 04/19/18 11:51 76 04/19/18 11:23 97.9 F 56 L 18 147/58 98 Intake and Output 04/19/18 04/19/18 04/20/18 14:59 22:59 06:59 Intake Total 50 Balance 50 Intake: IV 50 Other: Weight 49.895 kg - Constitutional General appearance: no acute distress - Respiratory Respiratory: bilateral: CTA - Cardiovascular Rhythm: regular Heart sounds: normal: S1, S2 Results 04/19/18 11:47 04/19/18 11:47 Cardiac Enzymes 04/19/18 04/19/18 04/19/18 Range/Units 11:47 11:47 17:32 AST 29 (14-36) U/L CK-MB (CK-2) 0.4 7.4 H (0.0-2.4) ng/mL Troponin I <0.012 0.647 H* (0.000-0.034) ng/mL Coagulation 04/19/18 Range/Units 11:47 PT 9.7 (9.0-12.0) sec APTT 26.9 (22.0-30.0) sec CBC 04/19/18 Range/Units 11:47 WBC 5.5 (3.8-10.6) k/uL RBC 4.66 (3.80-5.40) m/uL Hgb 12.6 (11.4-16.0) gm/dL Hct 39.3 (34.0-46.0) % Plt Count 282 (150-450) k/uL Comprehensive Metabolic Panel 04/19/18 Range/Units 11:47 Sodium 140 (137-145) mmol/L Potassium 3.8 (3.5-5.1) mmol/L Chloride 107 (98-107) mmol/L Carbon Dioxide 24 (22-30) mmol/L BUN 20 H (7-17) mg/dL Creatinine 0.57 (0.52-1.04) mg/dL Glucose 99 (74-99) mg/dL Calcium 9.2 (8.4-10.2) mg/dL AST 29 (14-36) U/L ALT 27 (9-52) U/L Alkaline Phosphatase 83 (38-126) U/L Total Protein 6.9 (6.3-8.2) g/dL Albumin 4.1 (3.5-5.0) g/dL Current Medications Generic Name Dose Route Start Last Admin Trade Name Freq PRN Reason Stop Dose Admin Alprazolam 0.25 mg 04/19/18 14:09 Xanax PO DAILY PRN Anxiety Aspirin 325 mg 04/20/18 09:00 Aspirin PO DAILY [facility] Atorvastatin Calcium 40 mg 04/19/18 22:00 Lipitor PO DAILY [facility] Cholecalciferol 1,000 unit 04/20/18 09:00 Vitamin D3 PO DAILY [facility] Hyoscyamine 0.125 mg 04/19/18 14:09 Levsin Drops SUBLINGUAL Q3H PRN GI Pain Heparin Sodium/Sodium Chloride 500 mls @ 11.97 mls/hr 04/19/18 14:15 15:21 25,000 unit/ Sodium Chloride IV 12 units/kg/hr .Q24H EVGENY 11.97 mls/hr Administration Protocol 12 UNITS/KG/HR Sodium Chloride 1,000 mls @ 20 mls/hr 04/19/18 14:15 04/19/18 15:24 Saline 0.9% IV 20 mls/hr .Q24H EVGENY Administration Nitroglycerin 1 inch 04/19/18 18:00 04/19/18 19:17 Nitro-Bid Oint TOPICAL 1 inch Q6HR EVGENY Administration Nitroglycerin 0.4 mg 04/19/18 14:05 Nitrostat SUBLINGUAL Q5M PRN Chest Pain Pantoprazole Sodium 40 mg 04/19/18 21:00 Protonix PO BID EVGENY Intake and Output 04/19/18 04/19/18 04/20/18 14:59 22:59 06:59 Intake Total 50 Balance 50 Intake: IV 50 Other: Weight 49.895 kg Patient Weight 04/20/18 06:59 Weight 49.895 kg 04/19/18 11:47 04/19/18 11:47 Assessment and Plan Assessment: Assessment #1 acute non-ST deviation myocardial infarction #2 dyslipidemia Plan #1 the heart catheterization revealed only mild to moderate nonobstructive CAD #2 I will follow-up on the echocardiogram which was performed earlier today #3 monitor the patient for additional 24 hours #4 follow-up with the patient. Thank you for allowing us participate in her care I will continue following up with the patient
[2018-04-20 00:11] LABS: Glucose,Whole Blood 87 mg/dL (75-99)
--- NOTE | 2018-04-20 00:54 | HP ---
HISTORY AND PHYSICAL DATE OF ADMISSION: 04/19/2018. DATE OF SERVICE: 04/19/2018. PRESENTING COMPLAINT: Chest pain. HISTORY OF PRESENTING COMPLAINT: A very pleasant 67-year-old patient who follows with Dr. Romero Stovall. Chronic stable medical conditions include hyperlipidemia, herniated disc in the lumbar spine, history of Whipple's procedure, GERD. The patient was sitting down when she had noticed a burning sensation across the chest, pressure-like, lasting for a few hours. There was no radiation. No perspiration, though the patient did break out in a cold sweat. She felt tired and run down. She decided to present to the ER. The patient did have a cardiac catheterization in 2016 that was negative. Initial troponin was negative. Second troponin was 0.6. The patient ruled in for an acute non-Q-wave MO. Patient was started on IV heparin. The patient is still having some pain. Cardiology is consulted. REVIEW OF SYSTEMS: CONSTITUTIONAL: Tired. HEENT: None. CARDIOVASCULAR: As above. GASTROINTESTINAL: Heartburn. GENITOURINARY: None. MUSCULOSKELETAL: None. DERMATOLOGIC: None. HEMATOLOGIC: None. LYMPHATICS: None. PSYCHIATRY: None. NEUROLOGIC: None. PSYCHIATRY: None. MUSCULOSKELETAL: Chronic low back pain. PAST MEDICAL HISTORY: Pancreatitis, hyperlipidemia, lumbar herniated disc. PAST SURGICAL HISTORY: Cholecystectomy, hernia repair, tubal ligation, Whipple procedure, lipoma removed from the left leg, ERCP. PSYCH HISTORY: History of anxiety. SOCIAL HISTORY: The patient started smoking at the age of 17. Smoked for about 12 years, stopped in 1979. No alcohol. FAMILY HISTORY: Lymphoma. . HOME MEDICATIONS: 1. Protonix 40 mg b.i.d. 2. Levbid 0.125 sublingual every 3 hours p.r.n. 3. Vitamin D3, 1000 units p.o. daily. 4. Xanax 0.25 p.o. daily p.r.n. ALLERGIES: DILAUDID, LEVAQUIN, SULFUR, TYLENOL, AUGMENTIN, CAFFEINE, TYLENOL 3, MORPHINE, AUGMENTIN. PHYSICAL EXAMINATION: VITAL SIGNS: Vital signs on presentation, temp 97.9, pulse 62, respiratory rate 18, blood pressure 127/58, pulse ox 93% on room air. GENERAL APPEARANCE: Average built, sitting up, tired-appearing. EYES: Pupils equal. Conjunctivae normal. HEENT: External appearance of nose and ears normal. Oral cavity normal. NECK: JVD not raised. Mass not palpable. Respiratory effort normal. LUNGS: Clear. CARDIOVASCULAR: 1st and 2nd sounds normal. No edema. ABDOMEN: Soft, nontender. Liver and spleen not palpable. LYMPHATICS: No lymph nodes palpable. PSYCHIATRY: Alert and oriented x3. Mood and affect slightly tired-appearing. NEUROLOGICAL: Pupils equal. Cranial nerves grossly intact. Power and sensation grossly intact. INVESTIGATIONS: White count 5.5, hemoglobin 12.6, platelets normal. Potassium 3.8, BUN 20, creatinine 0.57, troponin less than 0.012, 0.647. EKG normal sinus rhythm. Heart rate 53. Personally reviewed by me. Chest x-ray film personally reviewed by me, show hyperinflation. Lung liu are clear. ASSESSMENT: 1. Acute non-Q-wave myocardial infarction. 2. Emphysema, asymptomatic on chest x-ray. 3. History of Whipple's procedure. 4. IV heparin monitoring. PLAN: Patient is on aspirin, nitrates, IV heparin. Cardiology was consulted. Awaiting cardiac catheterization. Care was discussed with the patient and at the bedside. Questions were answered. MMODL / IJN: [id number] /
--- NOTE | 2018-04-20 02:33 | CC ---
CARDIAC CATHETERIZATION REPORT DATE OF SERVICE: April 19, 2018 PERFORMING PHYSICIAN: Melecio Rajan MD, vp of digital marketing. PROCEDURE PERFORMED: 1. Selective right and left coronary angiogram. 2. Left heart catheterization. INDICATION: This is a pleasant 67-year-old female patient with known history of mild coronary artery disease based on heart catheterization was performed in 2016, as well as dyslipidemia and history of Whipple procedure, presented to the emergency room complaining of chest discomfort and she was found to have mildly abnormal cardiac enzymes. Because of the ongoing chest discomfort, a heart catheterization was advised. APPROACH: Right radial artery. COMPLICATION: None. LEVEL OF SEDATION: Moderate with sedation length of 16 minutes. PROCEDURE DESCRIPTION: After obtaining an informed consent, the patient was brought to cardiac laboratory administrative director. The right radial artery was cannulated using micropuncture technique and a micropuncture wire passed easily. Then I placed a 6-Slovak sheath in the right radial artery. After that, I did selective right and left coronary angiogram using JR4 and JL3.5 catheters. Left heart catheterization was performed using 6-Slovak pigtail catheter. The procedure was completed without any complication. SELECTIVE CORONARY ANGIOGRAM: 1. The right coronary artery appeared to be a large caliber vessel and it is a dominant vessel. Distally has mild disease only, appears to be in the range of 30% to. 2. 40%. Then it bifurcates into PDA and PLV branches. Both are angiographically normal. 3. The left main is angiographically normal. It bifurcates into the left circumflex and left anterior descending artery. 4. The left circumflex is a large caliber vessel and it is a nondominant vessel. The proximal circumflex appeared to be normal. The mid circumflex has mild disease only and gives rise into a large OM branch which appeared to be angiographically normal and the circumflex distally appeared to be angiographically normal. 5. The left anterior descending artery: The proximal LAD appeared to be angiographically normal. The mid LAD is normal and gives rise into diag branch which distally appeared to be angiographically normal. The LAD in the proximal portion gives rise into the first diagonal branch which seems to be normal as well. HEMODYNAMICS: The left ventricular end diastolic pressure was about 16 mmHg with mild gradient across the aortic valve. CONCLUSION: Mild nonobstructive coronary artery disease involving the distal right coronary artery. POSTPROCEDURE MANAGEMENT: 1. Medical treatment. 2. Follow up with the patient. MMODL / IJN: [id number] /
--- NOTE | 2018-04-20 02:39 | LTR ---
DATE OF SERVICE: April 19, 2018. Dear Dr. Stovall: Ms. Gloria Levine presented to the emergency room at [facility] complaining of chest discomfort and was ruled in for acute non ST elevation myocardial infarction. Because of the ongoing chest discomfort, we decided to pursue with a heart catheterization which revealed only mild nonobstructive coronary artery disease. Thank you for allowing me to participate in her care and please do not hesitate to call if you have any questions or concerns. Sincerely, MMMAYTEL / IJN: [id number] /
[2018-04-20] MEDS: PANTOPRAZOLE 40 MG TABLET PO SCH ×3 (03:17→20:38)
[2018-04-20] MEDS: ATORVASTATIN 40 MG TAB PO SCH ×2 (03:17→08:39)
[2018-04-20] MEDS: NITROGLYCERIN OINT 1 INCH/GM PACKET TOPICAL SCH ×4 (03:19→17:35)
[2018-04-20 06:04] LABS: Cholesterol 196 mg/dL (<200); HDL Cholesterol 50 mg/dL (40-60); LDL Cholesterol,Calculated 121 mg/dL (0-99); Triglycerides 125 mg/dL (<150)
--- NOTE | 2018-04-20 06:08 | ECHOF ---
Referral Reason:Chest pain MEASUREMENTS -------- HEIGHT: 160.0 cm WEIGHT: 49.9 kg BP: 181/82 RVIDd: 1.9 cm (< 3.3) IVSd: 0.9 cm (0.6 - 1.1) LVIDd: 3.9 cm (3.9 - 5.3) LVPWd: 0.9 cm (0.6 - 1.1) IVSs: 1.3 cm LVIDs: 2.5 cm LVPWs: 1.3 cm LAESV Index (A-L): 28.79 ml/m Ao Diam: 2.6 cm (2.0 - 3.7) AV Cusp: 1.6 cm (1.5 - 2.6) LA Diam: 2.5 cm (2.7 - 3.8) MV EXCURSION: 10.933 mm (> 18.000) MV EF SLOPE: 84 mm/s (70 - 150) EPSS: 0.6 cm MV E Koffi: 0.79 m/s MV DecT: 257 ms MV A Koffi: 0.70 m/s MV E/A Ratio: 1.13 RAP: 5.00 mmHg RVSP: 22.44 mmHg FINDINGS -------- Resting bradycardia (HR<60bpm). This was a technically adequate study. The left ventricular size is normal. Left ventricular wall thickness is normal. Overall left vent ricular systolic function is normal with, an EF between 55 - 60 %. The right ventricle is normal in size and function. LA is midly dilated 29-33ml/m2. RA appears enlarged. Aortic valve is trileaflet and is mildly thickened. There is no evidence of aortic regurgitation. There is no evidence of aortic stenosis. The mitral valve leaflets are mildly thickened. Mild mitral regurgitation is present. There is mi ldly calcified chordae. Trace tricuspid regurgitation present. Right ventricular systolic pressure is normal at < 35 mmHg. There is no evidence of pulmonary hypertension. The pulmonic valve was not well visualized. The aortic root size is normal. Normal inferior vena cava with normal inspiratory collapse consistent with estimated right atrial pre ssure of 5 mmHg. CONCLUSIONS -------- 1. Resting bradycardia (HR<60bpm). 2. This was a technically adequate study. 3. The left ventricular size is normal. 4. Left ventricular wall thickness is normal. 5. Overall left ventricular systolic function is normal with, an EF between 55 - 60 %. 6. LA is midly dilated 29-33ml/m2. 7. RA appears enlarged. 8. Aortic valve is trileaflet and is mildly thickened. 9. The mitral valve leaflets are mildly thickened. 10. Mild mitral regurgitation is present. 11. There is mildly calcified chordae. 12. Trace tricuspid regurgitation present. 13. Right ventricular systolic pressure is normal at < 35 mmHg. 14. There is no evidence of pulmonary hypertension. 15. The pulmonic valve was not well visualized. 16. The aortic root size is normal. [employer]: Carlton Morse RDCS
[2018-04-20 06:32] LABS: Creatine Kinase MB 19.4 ng/mL (0.0-2.4)
[2018-04-20 06:43] LABS: Troponin I 6.33 ng/mL (0.000-0.034)
[2018-04-20] MEDS: CHOLECALCIFEROL 1,000 UNIT TAB PO SCH (08:39)
[2018-04-20] MEDS ORDERED: ASPIRIN 325 MG TAB PO SCH (09:00)
[2018-04-20 12:03] LABS: Glucose,Whole Blood 86 mg/dL (75-99)
--- NOTE | 2018-04-20 13:17 | P.PN ---
Subjective Progress Note Date: 04/13/18 This is a 67-year-old female who was admitted last night to the emergency room with complaints of prolonged chest pain and abnormal troponins. Patient had a cardiac catheterization and was not found to have any significant focal occlusive disease. There is mild to moderate diffuse disease. Echocardiogram did not reveal any wall motion abnormalities. The etiology of his abnormal troponins is not entirely clear. Patient is still having some abdominal discomfort. She needs surgical evaluation. From Cardec standpoint we'll continue current medical therapy. Objective - Vital Signs Vital signs: Vital Signs Temp 98.0 F 04/20/18 12:00 Pulse 57 L 04/20/18 12:00 Resp 26 H 04/20/18 12:00 BP 152/67 04/20/18 12:00 Pulse Ox 97 04/20/18 12:00 Intake & Output 04/19/18 04/20/18 04/20/18 18:59 06:59 18:59 Intake Total 190 340 Output Total 250 Balance -60 340 Weight 49.8 kg 49.532 kg 49.532 kg Intake: IV 70 100 Sodium Chloride 0.9% 1, 20 100 000 ml @ 20 mls/hr IV . Q24H [facility] Rx#:[id number] Oral 120 240 Output: Urine 250 Other: Voiding Method Bedside Commode Bedside Commode # Voids 350 - Exam GENERAL EXAM: Patient is alert and oriented and doesn't appear to be in any acute distress HEENT: Normocephalic. Normal reaction of pupils, equal size, normal range of extraocular motion. No erythema or exudates in the throat. NECK: No masses, no nuchal rigidity. CHEST: No chest wall deformity. LUNGS: Equal air entry with no crackles or wheeze. HEART: S1 and S2 normal with no audible mumurs or gallops. Regular rhythm, femorals equal on both sides.. ABDOMEN: No hepatosplenomegaly, normal bowel sounds, no guarding or rigidity. SKIN: No rashes CENTRAL NERVOUS SYSTEM: No focal deficits. EXTREMITIES: No cyanosis, clubbing or edema. - Labs CBC & Chem 7: 04/19/18 11:47 04/19/18 11:47 Labs: Abnormal Lab Results - Last 24 Hours (Table) 04/19/18 04/20/18 04/20/18 Range/Units 17:32 05:15 05:15 Total Creatine Kinase 147 H 419 H (30-135) U/L CK-MB (CK-2) 7.4 H 19.4 H (0.0-2.4) ng/mL Troponin I 0.647 H* 6.330 H* (0.000-0.034) ng/mL LDL Cholesterol, Calc 121 H (0-99) mg/dL Assessment and Plan (1) Troponin level elevated Current Visit: Yes Status: Acute Code(s): R74.8 - ABNORMAL LEVELS OF OTHER SERUM ENZYMES SNOMED Code(s): 119836869 Plan: Patient is admitted with chest and abdominal pain and abnormal troponins. Cardiac catheterization, however, did not reveal any significant obstructive disease. Still having abdominal pain that needs to be evaluated. From Cardec standpoint we'll continue current medical therapy
[2018-04-20] MEDS: HEPARIN SOD,PORK IN 0.45% NACL 25,000 UNIT in 0.45% NACL 1 500ML.BAG IV SCH (14:55)
[2018-04-20] MEDS: SODIUM CHLORIDE 0.9% 1,000 ML IV SCH (14:56)
[2018-04-20] MEDS: LISINOPRIL 5 MG TAB PO SCH (23:27)
[2018-04-21 06:51] LABS: Basophils % (A) 0 %; Eosinophils # (A) 0.1 k/uL (0-0.7); Eosinophils % (A) 2 %; HCT 37.2 % (34.0-46.0); HGB 12.1 gm/dL (11.4-16.0); Lymphocytes # (A) 1.5 k/uL (1.0-4.8); Lymphocytes % (A) 29 %; MCH 27.4 pg (25.0-35.0); MCHC 32.6 g/dL (31.0-37.0); MCV 83.8 fL (80.0-100.0); Mean Platelet Volume 7.4; Monocytes # (A) 0.3 k/uL (0-1.0); Monocytes % (A) 5 %; Neutrophils # (A) 3.3 k/uL (1.3-7.7); Neutrophils % (A) 63 %; Platelet Count 241 k/uL (150-450); RBC 4.44 m/uL (3.80-5.40); RDW 13.5 % (11.5-15.5); WBC 5.3 k/uL (3.8-10.6)
[2018-04-21 07:14] LABS: Anion Gap 5 mmol/L; Blood Urea Nitrogen 18 mg/dL (7-17); Calcium 9.2 mg/dL (8.4-10.2); Carbon Dioxide 27 mmol/L (22-30); Chloride 108 mmol/L (98-107); Glucose 94 mg/dL (74-99); Potassium 4.1 mmol/L (3.5-5.1); Sodium 140 mmol/L (137-145)
--- NOTE | 2018-04-21 07:56 | PN ---
PROGRESS NOTE DATE OF SERVICE: 04/20/18. PRESENTING COMPLAINT: Chest pain. INTERVAL HISTORY: This patient presented with acute non-Q-wave VT. Did undergo cardiac cath showing mild nonobstructive disease. Lying in bed, comfortable. No new issues. REVIEW OF SYSTEMS: Done for constitutional, cardiovascular, GI, pulmonary; relevant findings as above. CURRENT MEDICATIONS: Reviewed and include aspirin, Lipitor. PHYSICAL EXAMINATION: Temperature, pulse 55, respirations 17, blood pressure 146/80 pulse 95% on room air. GENERAL APPEARANCE: Lying in bed comfortable. EYES: Pupils equal. Conjunctivae normal. HEENT: External appearance of nose and ears. Oral cavity normal. NECK: JVD not raised. Mass not palpable. RESPIRATORY: Effort, lungs are clear. CARDIOVASCULAR: First and second sounds, no edema. ABDOMEN: Soft, nontender. Liver and spleen not palpable. PSYCHIATRY: Alert and oriented x3. Mood and affect normal. INVESTIGATIONS: Troponin is 0.6, then 6.3. LDL 121. ASSESSMENT: 1. Acute non-Q-wave myocardial infarction. 2. Cardiac cath showing minimal nonobstructive disease. 3. Emphysema asymptomatic on chest x-ray. 4. History of a post procedure . PLAN: The patient is on aspirin and Lipitor. Will see how the patient does today. Will DC the nitroglycerin paste. The patient's 2D echo showed preserved LV function. Care was discussed with the patient and daughter at the bedside. MARILYN / KAVEHN: [id number] /
[2018-04-21] MEDS: CHOLECALCIFEROL 1,000 UNIT TAB PO SCH (08:50)
[2018-04-21] MEDS: PANTOPRAZOLE 40 MG TABLET PO SCH ×2 (08:50→21:07)
[2018-04-21] MEDS: LISINOPRIL 5 MG TAB PO SCH (08:50)
[2018-04-21] MEDS: ASPIRIN 81 MG PO SCH (08:50)
[2018-04-21] MEDS: METOPROLOL TARTRATE 12.5 MG TAB PO SCH ×2 (12:24→21:07)
[2018-04-21] MEDS: SODIUM CHLORIDE 0.9% 1,000 ML IV SCH (12:25)
[2018-04-21] MEDS: ATORVASTATIN 40 MG TAB PO SCH (12:25)
--- NOTE | 2018-04-21 12:40 | P.PN ---
Subjective Progress Note Date: 04/21/18 This is a pleasant 67-year-old female patient of Dr. 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 The patient described chest discomfort started this morning, as a dull pain across the chest, without any radiation to arm or neck or shoulders, and without any associated symptoms of shortness of breath, nausea, sweating, or shortness of breath. Because of that she decided to come to the emergency room. In the emergency room the EKG did not show any significant ST or T-wave abnormalities. The first set of cardiac enzymes came in to be unremarkable and the second set of enzymes came in to the slightly abnormal. Because the patient continues to have a chest discomfort in the emergency room, we decided to pursue with a heart catheterization. The patient underwent a heart catheterization and that revealed mild to moderate nonobstructive coronary artery disease involving the right coronary artery. The procedure was performed from the right radial artery. Overall the heart catheterization seems to be the same converted 2016. Overall the patient tolerated the procedure very well. Echocardiogram did not reveal any wall motion abnormalities. The etiology of his abnormal troponins is not entirely clear. Patient is still having some abdominal discomfort. She needs surgical evaluation. From Cardec standpoint we 'll continue current medical therapy. 04/21: Patient denies having any chest pain or epigastric pain. She states she ate well this morning and she has been ambulating without any difficulty. No lightheadedness or dizziness. Patient did refuse to take Lipitor as she's been told after her Whipple procedure that she should not take any statins. Patient will be started on a low-dose metoprolol. Anticipate discharge on Sunday. Objective - Vital Signs Vital signs: Vital Signs Temp 96.7 F L 04/21/18 08:00 Pulse 70 04/21/18 08:00 Resp 17 04/21/18 04:00 BP 110/53 04/21/18 08:00 Pulse Ox 98 04/21/18 08:00 Intake & Output 04/20/18 04/21/18 04/21/18 18:59 06:59 18:59 Intake Total 1140 700 Balance 1140 700 Weight 49.532 kg 47.5 kg Intake: IV 100 Sodium Chloride 0.9% 1, 100 000 ml @ 20 mls/hr IV . Q24H [facility] Rx#:[id number] Oral 1040 300 Blood Product 400 Other: Voiding Method Bedside Commode Bedside Commode # Voids 3 2 - Exam Gen: This is a 67-year-old female. She is sitting in a chair and appears to be comfortable and in no acute distress. HEENT: Head is atraumatic, normocephalic. Pupils equal, round. Sclerae is anicteric. NECK: Supple. No JVD. No lymphadenopathy. No thyromegaly. LUNGS: Clear to auscultation. No wheezes or rhonchi. No intercostal retractions. HEART: Regular rate and rhythm. No murmur. ABDOMEN: Soft. Bowel sounds are present. No masses. No tenderness. EXTREMITIES: No pedal edema. No calf tenderness. NEUROLOGICAL: Patient is awake, alert and oriented x3. Cranial nerves 2 through 12 are grossly intact. - Labs CBC & Chem 7: 04/21/18 05:33 04/21/18 05:33 Labs: Abnormal Lab Results - Last 24 Hours (Table) 04/21/18 Range/Units 05:33 Chloride 108 H (98-107) mmol/L BUN 18 H (7-17) mg/dL Assessment and Plan Plan: Assessment #1 acute non-ST deviation myocardial infarction #2 dyslipidemia Plan #1 the heart catheterization revealed only mild to moderate nonobstructive CAD #2 Echocardiogram showed no wall motion abnormalities. #3 continue medical therapy, start metoprolol. Lipitor discontinued as patient has had Whipple procedure and has been told not to take statin. #4 follow-up with the patient. Nurse Practitioner note has been reviewed, I agree with a documented findings and plan of care. Patient was seen and examined.
--- NOTE | 2018-04-21 22:56 | PN ---
PROGRESS NOTE DATE OF SERVICE: 04/21/2018 PRESENTING COMPLAINT: Chest pain. INTERVAL HISTORY: Patient presented with acute non-Q-wave myocardial infarction. Cardiac cath showed minimal nonobstructive disease. Stent was discontinued because of prior peripheral procedure. Seen by Cardiology. No chest pain or short of breath. Has been out of bed. REVIEW OF SYSTEMS: Done for constitutional, cardiovascular, GI, pulmonary and relevant findings as above. CURRENT MEDICATIONS: Reviewed that include aspirin, Lopressor and Zestril. PHYSICAL EXAMINATION: VITAL SIGNS: Temperature 96.7, pulse 72, respirations 18, blood pressure 110/53, pulse ox 98% on room air. GENERAL APPEARANCE: Lying in bed, comfortable. EYES: Pupils equal. Conjunctivae normal. HEENT: External appearance of nose and ears normal. Oral cavity normal. NECK: JVD not raised. Mass not palpable. RESPIRATORY: Effort lungs are clear. CARDIOVASCULAR: 1st and 2nd sounds normal. No edema. ABDOMEN: Soft, nontender. Liver and spleen not palpable. PSYCHIATRY: Alert and oriented x3. Mood and affect is normal. INVESTIGATIONS: White count 5.3, hemoglobin 12.1, potassium 4.1, BUN 18, creatinine 0.59. ASSESSMENT: 1. Acute non-Q-wave myocardial infarction. 2. Cardiac cath showing minimal nonobstructive disease. 3. Emphysema asymptomatic on chest x-ray. PLAN: Continue with aspirin. The patient's Lipitor was discontinued Whipple's procedure. The patient is otherwise stable. Encouraged to ambulate. Hopefully home tomorrow. MMODL / IJN: [id number] /
[2018-04-22 06:41] LABS: Basophils % (A) 0 %; Eosinophils # (A) 0.1 k/uL (0-0.7); Eosinophils % (A) 2 %; HCT 36.2 % (34.0-46.0); HGB 11.6 gm/dL (11.4-16.0); Lymphocytes # (A) 1.8 k/uL (1.0-4.8); Lymphocytes % (A) 36 %; MCHC 32.1 g/dL (31.0-37.0); Mean Platelet Volume 7.5; Monocytes # (A) 0.3 k/uL (0-1.0); Monocytes % (A) 6 %; Neutrophils # (A) 2.6 k/uL (1.3-7.7); Neutrophils % (A) 54 %; Platelet Count 235 k/uL (150-450); RBC 4.31 m/uL (3.80-5.40); RDW 13.4 % (11.5-15.5); WBC 4.9 k/uL (3.8-10.6)
[2018-04-22 07:05] LABS: Anion Gap 7 mmol/L; Blood Urea Nitrogen 21 mg/dL (7-17); Calcium 9.3 mg/dL (8.4-10.2); Carbon Dioxide 25 mmol/L (22-30); Chloride 108 mmol/L (98-107); Glucose 83 mg/dL (74-99); Potassium 4.5 mmol/L (3.5-5.1); Sodium 140 mmol/L (137-145)
[2018-04-22] MEDS: ASPIRIN 81 MG PO SCH (10:13)
[2018-04-22] MEDS: METOPROLOL TARTRATE 12.5 MG TAB PO SCH (10:13)
[2018-04-22] MEDS: PANTOPRAZOLE 40 MG TABLET PO SCH (10:13)
[2018-04-22] MEDS: CHOLECALCIFEROL 1,000 UNIT TAB PO SCH (10:13)
[2018-04-22 10:58] VITALS: BMI 18.8
[2018-04-22 11:50] VITALS: RESP 18
[2018-04-22] MEDS ORDERED: LISINOPRIL 5 MG TAB PO SCH (12:00)
[2018-04-22] MEDS ORDERED: ATORVASTATIN 40 MG TAB PO SCH (14:45)
[2018-04-22] MEDS: SODIUM CHLORIDE 0.9% 1,000 ML IV SCH (15:03)
[2018-04-22 15:25] VITALS: BP 92/48; PULSE 86; TEMP 97.1
--- NOTE | 2018-04-22 15:29 | P.PN ---
Subjective Progress Note Date: 04/22/18 This is a pleasant 67-year-old female who sees Dr. Servin in the office. She has a past medical history significant for mild nonobstructive coronary artery disease based on prior cath performed in 2016, hyperlipidemia, history of Whipple procedure. She presented to the hospital with symptoms of chest discomfort, was taken to the cardiac catheterization lab where she was not found to have any significant obstructive coronary artery disease. Patient was seen and examined this morning, denies any chest pain or difficulty in breathing. She's been up ambulating without any difficulty. Anticipating discharge home today. Objective - Vital Signs Vital signs: Vital Signs Temp 97.1 F L 04/22/18 15:15 Pulse 86 04/22/18 15:15 Resp 18 04/22/18 15:15 BP 92/48 04/22/18 15:15 Pulse Ox 96 04/22/18 15:15 Intake & Output 04/21/18 04/22/18 04/22/18 18:59 06:59 18:59 Intake Total 380 800 480 Balance 380 800 480 Weight 48.2 kg 48.2 kg Intake: Oral 380 800 480 Other: Voiding Method Bedside Commode Bedside Commode # Voids 3 2 1 - Exam PHYSICAL EXAMINATION: GENERAL: 67-year-old female in no acute distress at the time of my examination HEENT: Head is atraumatic, normocephalic. Pupils equal, round. Sclera anicteric. Conjunctiva are clear. Mucous membranes of the mouth are moist. Neck is supple. There is no elevated jugular venous pressure. No carotid bruit is heard. HEART EXAMINATION: Heart S1, S2 normal. No murmur or gallop heard. CHEST EXAMINATION: Lungs are clear to auscultation and precussion. No chest wall tenderness is noted on palpation or with deep breathing. ABDOMEN: Soft, nontender. Bowel sounds are heard. No organomegaly noted. EXTREMITIES: 2+ peripheral pulses with no evidence of peripheral edema and no calf tenderness noted. NEUROLOGIC patient is awake, alert and oriented X3. . - Labs CBC & Chem 7: 04/22/18 05:56 04/22/18 05:56 Labs: Abnormal Lab Results - Last 24 Hours (Table) 04/22/18 Range/Units 05:56 Chloride 108 H (98-107) mmol/L BUN 21 H (7-17) mg/dL Assessment and Plan Plan: Assessment and plan #1 non-ST elevation myocardial infarction #2 hyperlipidemia Plan Cardiac catheterization revealed mild to moderate nonobstructive coronary artery disease. From cardiology's perspective, patient may be able to be discharged home. Follow-up appointment will be made with Dr. Srevin in the office post discharge. DNP note has been reviewed, I agree with a documented findings and plan of care. Patient was seen and examined.
--- NOTE | 2018-04-23 08:58 | DS ---
DISCHARGE SUMMARY DATE OF ADMISSION: 04/19/2018 DATE OF DISCHARGE: 04/22/2018 FINAL DIAGNOSES: 1. Acute non-Q-wave myocardial infarction. 2. Emphysema, asymptomatic on chest x-ray. HOSPITAL COURSE: This patient presented with acute ID, cardiac cath showed minimal disease. A 2D echocardiogram showed EF of 55%-60%. The patient doing well at the time of discharge, LDL was 121. CONSULTATIONS: 1. Dr. Rajan from Interventional Cardiology. 2. Dr. Musa from Cardiology. PHYSICAL EXAMINATION: Temperature 97.1, pulse 86, respiration 18, blood pressure 92/48, pulse ox 96% on room air. LUNGS: Fair entry. CARDIOVASCULAR: First and second sounds are normal. DISCHARGE MEDICATIONS: 1. Xanax 0.25 p.o. daily p.r.n. 2. vitamin D3 one thousand units p.o. daily. 3. Levsin 0.125 mg subcu q.3 p.r.n. 4. Protonix 40 mg b.i.d. 5. Aspirin 81 mg p.o. daily. 6. Lipitor 40 mg p.o. daily. 7. Zestril 2.5 mg at noon. 8. Lopressor 12.5 p.o. b.i.d. 9. Nitrostat 0.4 sublingual q.5 p.r.n. FOLLOWUP: Follow up with Dr. Rajan on 04/29/2018. Follow up with Dr. Romero Stovall on 04/24/2018. MMODL / KAVEHN: [id number] /
== END 2018-04-22 16:07 | disposition home or self-care (01) | DRG 282 ==
LOC: EC 11:16 → 1SOBS 14:05 → 3SCARD 19:25 → 2SICU 21:39 → OBSVTOIN 21:41 → 2SICU 23:58 → 3SCARD 04-20 17:47
PROVIDERS: ADMIT Hospitalist; ATTEND Hospitalist
PROC: B2111ZZ Fluoroscopy of Multiple Coronary Arteries using Low Osmolar Contrast (ICD-10-PCS; 2018-04-19)
PROC: 4A023N7 Measurement of Cardiac Sampling and Pressure, Left Heart, Percutaneous Approach (ICD-10-PCS; principal; 2018-04-19 23:00)
DX: I21.4 Non-ST elevation (NSTEMI) myocardial infarction (principal); J43.9 Emphysema, unspecified; I25.110 Atherosclerotic heart disease of native coronary artery with unstable angina pectoris; E78.5 Hyperlipidemia, unspecified; K21.9 Gastro-esophageal reflux disease without esophagitis; M51.26 Other intervertebral disc displacement, lumbar region; F41.0 Panic disorder [episodic paroxysmal anxiety]; Z79.899 Other long term (current) drug therapy; Z87.891 Personal history of nicotine dependence; Z90.49 Acquired absence of other specified parts of digestive tract; Z90.411 Acquired partial absence of pancreas; Z98.51 Tubal ligation status; Z88.1 Allergy status to other antibiotic agents; Z88.5 Allergy status to narcotic agent; Z88.0 Allergy status to penicillin; Z88.2 Allergy status to sulfonamides; Z88.8 Allergy status to other drugs, medicaments and biological substances; Z91.018 Allergy to other foods; Z82.49 Family history of ischemic heart disease and other diseases of the circulatory system; Z80.7 Family history of other malignant neoplasms of lymphoid, hematopoietic and related tissues
CPT/HCPCS: 36415; 71046; 80048; 80053; 80061; 82150; 82550; 82553; 83690; 83735; 83880; 84484; 85025; 85379; 85610; 85730; 93005; 93306; 93458; 96365; 96366; 96376; 99285

== ENCOUNTER → 2018-08-13 | Outpatient (CLI) | payer MEDICARE ==
[2018-08-13 18:43] LABS: LDL Cholesterol,Calculated 113.8 mg/dL (0.0-131.0); VLDL Calculation 21.2 mg/dL (5.00-40.00)
== END ==
LOC: LABWHC1 10:46
PROVIDERS: ATTEND Internal Medicine Interventional Cardiology
DX: E78.2 Mixed hyperlipidemia (principal)
CPT/HCPCS: 36415; 80061; 84450; 84460

== ENCOUNTER → 2018-10-29 | Outpatient (CLI) | payer MEDICARE ==
--- NOTE | 2018-10-29 09:44 | US ---
EXAMINATION TYPE: US thyroid st tissue head/neck DATE OF EXAM: 10/29/2018 COMPARISON: 10/24/2017 and 10/04/2017 CLINICAL HISTORY: E04.1 Nodule. GLAND SIZE: Right Lobe: 4.2 x 1.4 x 1.4 cm Overall Parenchyma: homogenous Left Lobe: 4.3 x 0.8 x 0.9 cm Overall Parenchyma: homogeneous Isthmus Thickness: 0.3 cm NODULES RIGHT: # of nodules measured on right: 1 1. 2.0 X 1.0 x 1.6 cm isoechoic solid nodule at the lower pole with well-defined margins. This nod ule is wider than tall. This appears to have been previously biopsied on 10/24/2017. Prior size: 2.2 x 1.3 x 1.1 cm LEFT: # of nodules measured on left: 1 1. 0.9 X 0.4 x 0.8 cm isoechoic solid nodule at the lower pole with irregular margins. This nodule is wider than tall and shows intranodular vascularity. Prior size: 0.9 x 0.7 x 0.6 cm ISTHMUS: # of nodules measured in the isthmus: 1 1. 0.6 X 0.3 x 0.6 cm hypoechoic solid nodule at the left pole with well-defined margins. This nod ule is wider than tall and shows intranodular vascularity. Prior size: 0.6 x 0.3 x 0.9 cm Bilateral neck scanned, no evidence of lymphadenopathy. IMPRESSION: Stable size of the thyroid nodules, the largest of which was previously biopsied on 10/24/2017.
== END ==
LOC: RADUSWWP 08:45
PROVIDERS: ATTEND Internal Medicine
DX: E04.2 Nontoxic multinodular goiter (principal)
CPT/HCPCS: 76536

== ENCOUNTER 2019-01-08 10:06 | Day surgery (SDC) | payer MEDICARE ==
[2019-01-03 14:56] VITALS: BMI 18.9
[2019-01-08 10:35] VITALS: TEMP 97
[2019-01-08] MEDS ORDERED: PROPOFOL 10 MG/ML 20 ML VIAL IV ONE (11:21)
[2019-01-08] MEDS ORDERED: LIDOCAINE 1% INJ 10MG/ML (20 ML MDV) ONE (11:21)
--- NOTE | 2019-01-08 11:51 | P.PCN ---
Date of Procedure: 01/08/19 Procedure(s) Performed: Brief history: Patient is a pleasant 68-year-old pleasant white female scheduled for an elective upper endoscopy as well as colonoscopy as a part of evaluation of in September chest pain, long-standing history of GERD and intermittent nausea vomiting. Also has altered bowel movements with intermittent rectal bleeding. Procedure performed: Esophagogastroduodenoscopy with biopsy Colonoscopy with biopsy and snare polypectomy Preoperative diagnosis: Atypical chest pain/nausea vomiting Chronic diarrhea and intermittent rectal bleeding Anesthesia: MAC Procedure: After informed consent was obtained from the patient was brought into the endoscopy unit and IV sedation was administered by anesthesia under continuous monitoring. Initially upper endoscopy was done. The Olympus GF 160 video endoscope was inserted inserted into the mouth and esophagus intubated without any difficulty and was gradually advanced into the stomach There was evidence of previous Whipple surgery with Vasyl-en-Y anastomosis noted. The scope was advanced from the anastomosis into the afferent and efferent loops both of which appeared normal. The scope was then withdrawn into the stomach adequately insufflated with air and upon careful examination the antrum@gastritis and biopsies were done from this area. The body, cardia and fundus appeared normal. The scope was then withdrawn into the esophagus. The GE junction was located at 40 cm to the incisors. It appeared regular with no e rythema erosions or ulcerations. Rest of the esophagus appeared normal. biopsies were done from the distal esophagus. Patient tolerated the procedure well. At this time the patient continued to remain sedation. Initial digital rectal examination was normal. Olympus CF 160 video colonoscope was then inserted into the rectum and gradually advanced to the cecum without any difficulty. Careful examination was performed as the scope was gradually being withdrawn. The prep was excellent. The cecum, ascending colon, appeared normal. In the distal transverse colon there was a 5 mm polyp that was removed by snare polypectomy. The rest of the transverse colon, descending colon, sigmoid colon and rectum appeared normal. Scattered sigmoid diverticulosis seen. Random biopsies were done from ascending and descending colon to rule out metastatic/collagenous colitis. Retroflexion was performed in the rectum and no lesions were noted. Patient tolerated the procedure well. Impression: 1. Upper endoscopy revealed evidence of previous Whipple surgery with distal antrectomy and Vasyl-en-Y anastomosis. Mild gastritis seen but no evidence of peptic ulcer disease 2. Colonoscopy revealed a 5 mm transverse colon polyp status post polypectomy and scattered sigmoid diverticulosis. Recommendations: Findings of this examination were discussed with the patient as well as her family. She was advised to follow with the biopsy results. If the biopsy shows an adenoma, she can have a repeat colonoscopy in 5 years. He will continue with her current medications and she'll be seen in office in 4-6 weeks
[2019-01-08 11:55] VITALS: RESP 16
[2019-01-08 12:34] VITALS: BP 149/70; PULSE 53
== END 2019-01-08 12:49 | disposition home or self-care (01) ==
LOC: ORWHC2ENDO 10:06
PROVIDERS: ATTEND Internal Medicine Gastroenterology
DX: K29.70 Gastritis, unspecified, without bleeding (principal); D12.3 Benign neoplasm of transverse colon; K57.30 Diverticulosis of large intestine without perforation or abscess without bleeding; K31.9 Disease of stomach and duodenum, unspecified; K58.0 Irritable bowel syndrome with diarrhea; Z90.411 Acquired partial absence of pancreas; Z79.82 Long term (current) use of aspirin; Z79.899 Other long term (current) drug therapy; E78.5 Hyperlipidemia, unspecified; Z87.891 Personal history of nicotine dependence; Z88.1 Allergy status to other antibiotic agents; Z88.2 Allergy status to sulfonamides; Z88.5 Allergy status to narcotic agent; Z88.8 Allergy status to other drugs, medicaments and biological substances
CPT/HCPCS: 88305; 45380; 45385; 43239; J2001; J2704

== ENCOUNTER → 2019-06-03 | Outpatient (CLI) | payer MEDICARE ==
--- NOTE | 2019-06-03 14:03 | BD ---
EXAMINATION TYPE: Axial Bone Density DATE OF EXAM: 06/03/2019 COMPARISON: Prior DEXA bone scan 2017 CLINICAL HISTORY: Osteopenia. Height: 63 Weight: 103.5 FRAX RISK QUESTIONS: Alcohol (3 or more units per day): no Family History (Parent hip fracture): no Glucocorticoids (More than 3mos): no (Ex: prednisone, prednisolone, methylprednisolone, dexamethasone, and hydrocortisone). History of Fracture in Adulthood: yes Secondary Osteoporosis: 1. Type 1 Diabetes: no 2. Hyperthyroidism: no 3. Menopause before 45: no 4. Malnutrition: no 5. Chronic liver disease: no Rheumatoid Arthritis: no Current Tobacco Use: no RISK FACTORS HISTORY OF: Active: yes Diet low in dairy products/other sources of calcium: yes Postmenopausal woman: age 49 MEDICATIONS: metropolol Additional History: Were EXAM MEASUREMENTS: Bone mineral densitometry was performed using the [employer] System. Bone mineral density as measured about the Lumbar spine is: ----- L1-L4(G/cm2): 0.874 T Score Values are as follows: ----- L2: -2.8 ----- L3: -2.7 ----- L4: -2.8 ----- L1-L4: -2.6 Bone mineral density has: decreased -2.9 % since study of: 03.23.2017 Bone mineral density about the R hip (g/cm2): 0.830 Bone mineral density about the L hip (g/cm2): 0.843 T Score values are as follows: -----R Neck: -1.5 -----L Neck: -1.4 -----R Total: -2.0 -----L Total: -1.8 Bone mineral density has: decreased -6.8 % since study of: 03.23.2017 IMPRESSION: Osteoporosis (T Score less than -2.5) now present overall in the low back. There is increased fracture risk and therapy is usually indicated based on age. Re-Screen 1-2 years. NOTE: T-SCORE=SD OF THE YOUNG ADULT MEAN.
== END | disposition home or self-care (01) ==
LOC: RADBDWWP 09:52
PROVIDERS: ATTEND Obstetrics & Gynecology
DX: M81.0 Age-related osteoporosis without current pathological fracture (principal)
CPT/HCPCS: 77080

== ENCOUNTER → 2019-06-03 | Outpatient (CLI) | payer MEDICARE ==
--- NOTE | 2019-06-05 14:10 | MM ---
Reason for exam: screening (asymptomatic). Last mammogram was performed 1 year and 2 months ago. History: Patient is postmenopausal. US discontinued breast bx LT of the left breast, February 18, 2015. Took hormonal contraceptives for 1 year beginning at age 21. Physical Findings: A clinical breast exam by your physician is recommended on an annual basis and results should be correlated with mammographic findings. MG 3D Screening Mammo W/Cad Bilateral CC and MLO view(s) were taken. Prior study comparison: April 08, 2018, bilateral MG 3d screening mammo w/cad. March 23, 2017, bilateral MG screening mammo w CAD. The breast tissue is heterogeneously dense. This may lower the sensitivity of mammography. There is chronic nodularity in the left breast medially and anteriorly. No significant changes when compared with prior studies. ASSESSMENT: Benign, BI-RAD 2 RECOMMENDATION: Routine screening mammogram of both breasts in 1 year.
== END | disposition home or self-care (01) ==
LOC: RADMAMWWP 09:50
PROVIDERS: ATTEND Internal Medicine
DX: Z12.31 Encounter for screening mammogram for malignant neoplasm of breast (principal)
CPT/HCPCS: 77063; 77067

== ENCOUNTER → 2019-08-05 | Outpatient (CLI) | payer MEDICARE ==
[~2019-08-05] MED LIST changes: -LACTATED RINGERS 1,000 ML IV SCH; -LIDOCAINE 1% 20 ML VIAL (10MG/ML) FOR IV START INTRADERMA PRN; +SODIUM CHLORIDE 0.9% 500 ML 500 ML in EMPTY BAG 1 BAG IV PRN; +ZOLEDRONIC ACID 5 MG in SODIUM CHLORIDE 0.9% 100 ML IV NR
[2019-08-05 07:27] VITALS: BP 131/73; PULSE 59; RESP 16; TEMP 97.6
== END | disposition home or self-care (01) ==
LOC: PROCWHC3 06:49
PROVIDERS: ATTEND Internal Medicine
DX: M81.0 Age-related osteoporosis without current pathological fracture (principal)
CPT/HCPCS: 96365

== ENCOUNTER → 2019-12-05 | Outpatient (CLI) | payer MEDICARE ==
[2019-12-05 09:08] LABS: African American GFR (CKD) >90 (>60 ml/min/1.73 sqM); Blood Urea Nitrogen 15 mg/dL (7-17); Non-African American GFR(CKD) >90 (>60 ml/min/1.73 sqM)
--- NOTE | 2019-12-05 10:40 | CT ---
EXAMINATION TYPE: CT abdomen pelvis w con DATE OF EXAM: 12/05/2019 COMPARISON: 06/15/2017 HISTORY: 69-year-old female R31.0, Hematuria and pelvic pain. TECHNIQUE: Contiguous axial scanning of the abdomen and pelvis following administration of 100 ml Iso rojas 300 IV contrast. Delayed images through the kidneys and coronal/sagittal reconstructions perform ed. CT DLP: 644 mGycm Automated exposure control for dose reduction was used. FINDINGS: Heart normal size without pericardial effusion. Some RCA calcifications are present. Lung bases clear without pleural effusion. No focal liver lesion. Redemonstrated central pneumobilia likely a product of prior sphincterotomy. C holecystectomy clips. Portal venous system is patent. A 1 cm area of calcifications in the pancreatic head region remains unchanged and of unclear etiology . Adrenal glands are within normal limits. This seems to be some mild wall thickening along the second portion of the duodenum. Possible minimal adjacent fat stranding, reference axial image 26 and delayed axial image 24. There is some fluid wit hin the bowel at this level. Difficult to follow the duodenum. Third portion of the duodenum may course abnormally, anterior to th e SMA. There also seems to be a possible gastrojejunostomy surgical anastomosis, coronal image 26. Small fatty umbilical hernia. Oral contrast has progressed into the proximal transverse colon. Mild scattered stool. No pericolonic inflammatory change. Normal appendix. Scattered mild colonic diverticulosis particularly along the s igmoid colon and ascending colon. No pericolonic inflammatory change seen. Bilateral extrarenal pelves redemonstrated. Benign 1.2 cm cyst laterally in the right kidney. Tiny 4 mm cortical hypodensity posterior left kidney was present back in 2018 suggesting a benign cyst. Symm etric uptake and excretion of contrast from both kidneys. No suspicious renal lesion seen. No renal calculi identified. No dilated small bowel, free fluid, or free air. A few scattered nonenlarged and borderline sized mesenteric lymph nodes measuring up to 5 mm nonspeci fic, likely reactive/post inflammatory. Bladder partially distended. Uterus anteverted. Prominent parauterine varices. Pelvic fluids. No abno rmal fluid collection in the pelvis or pelvic lymphadenopathy. Surgical changes along the right ingui nal region and anterior right lower quadrant anterior abdominal wall. Neither ovary clearly visualize d. Bones: Mild degenerative change of the hips and SI joints. Mild posterior disc bulge at L5-S1. IMPRESSION: 1. PROMINENT PARAUTERINE VARICES ARE NONSPECIFIC BUT CAN BE SEEN WITH PELVIC CONGESTION SYNDROME. CLI NICALLY CORRELATE. 2. A COUPLE BENIGN CYSTS WITHIN THE KIDNEYS. STABLE EXTRARENAL PELVES OF THE KIDNEYS. NO NEPHROLITHIA SIS OR SUSPICIOUS RENAL LESION. 3. POSSIBLE ABERRANT COURSE OF THE DUODENUM COURSING ANTERIOR TO THE SMA. THERE ALSO SEEMS TO BE A GA STROJEJUNOSTOMY. CORRELATE WITH PRIOR SURGICAL HISTORY. MILD CENTRAL PNEUMOBILIA WAS ALSO PRESENT PRE VIOUSLY, PROBABLY A PRODUCT OF PRIOR SPHINCTEROTOMY. 4. STABLE 1 CM AREA OF CALCIFICATION IN THE PANCREATIC HEAD REGION. 5. MILD WALL THICKENING ALONG THE SECOND PORTION OF THE DUODENUM COULD REPRESENT SOME FOLD REDUNDANCY . CORRELATE FOR ANY SYMPTOMS OF DUODENITIS. 6. COLONIC DIVERTICULOSIS WITHOUT ACUTE DIVERTICULITIS.
== END | disposition home or self-care (01) ==
LOC: RADCTMAIN 08:25
PROVIDERS: ATTEND Urology
DX: N28.1 Cyst of kidney, acquired (principal); N94.89 Other specified conditions associated with female genital organs and menstrual cycle; K57.30 Diverticulosis of large intestine without perforation or abscess without bleeding; K86.89 Other specified diseases of pancreas; Z88.2 Allergy status to sulfonamides; Z88.1 Allergy status to other antibiotic agents; Z88.8 Allergy status to other drugs, medicaments and biological substances; Z88.5 Allergy status to narcotic agent; R31.0 Gross hematuria
CPT/HCPCS: 82565; 84520; 74177; 36415; Q9967 ×2

== ENCOUNTER → 2019-12-12 | Outpatient (CLI) | payer MEDICARE ==
--- NOTE | 2019-12-13 07:34 | US ---
EXAMINATION TYPE: US thyroid st tissue head/neck DATE OF EXAM: 12/12/2019 COMPARISON: US 2019 CLINICAL HISTORY: E04.1 Thyroid nodule. Thyroid nodules, history thyroid FNA GLAND SIZE: Right Lobe: 5.1 x 1.0 x 1.4 cm Overall Parenchyma: homogenous Left Lobe: 4.2 x 0.8 x 0.9 cm Overall Parenchyma: homogeneous Isthmus Thickness: 0.2 cm NODULES RIGHT: # of nodules measured on right: 2 1. 1.9 X 1.1 x 1.6 cm hyperechoic solid nodule at the lower pole with well-defined margins. This no dule is wider than tall and shows intranodular vascularity. Prior size: 2.0 x 1.0 x 1.6 cm 2. 1.4 X 0.6 x 0.7 cm hypoechoic mixed nodule at the mid pole with irregular margins. This nodule is taller than wide and shows intranodular vascularity. Prior size: no previous LEFT: # of nodules measured on left: 1 1. 0.4 X 0.5 x 0.4 cm hyperechoic solid nodule at the lower pole with well-defined margins. This no dule is taller than wide and shows intranodular vascularity. Prior size: 0.6 x 0.3 x 0.6 cm ISTHMUS: # of nodules measured in the isthmus: 1 1. 0.5 X 0.3 x 0.6 cm hypoechoic solid nodule with well-defined margins. This nodule is wider than tall and shows intranodular vascularity. Prior size: 0.9 x 0.4 x 0.8 cm Bilateral neck scanned, no evidence of lymphadenopathy. IMPRESSION: Stable nonspecific thyroid nodularity.
== END | disposition home or self-care (01) ==
LOC: RADUSWWP 15:26
PROVIDERS: ATTEND Internal Medicine
DX: E04.1 Nontoxic single thyroid nodule (principal)
CPT/HCPCS: 76536

== ENCOUNTER → 2020-07-05 | Outpatient (CLI) | payer MEDICARE ==
--- NOTE | 2020-07-06 09:51 | MM ---
Reason for exam: screening (asymptomatic). Last mammogram was performed 1 year and 1 month ago. History: Patient is postmenopausal. US discontinued breast bx LT of the left breast, February 18, 2015. Took hormonal contraceptives for 1 year beginning at age 21. Physical Findings: A clinical breast exam by your physician is recommended on an annual basis and results should be correlated with mammographic findings. MG Screening Mammo w CAD Bilateral CC and MLO view(s) were taken. Prior study comparison: June 03, 2019, bilateral MG 3d screening mammo w/cad. April 08, 2018, bilateral MG 3d screening mammo w/cad. The breast tissue is heterogeneously dense. This may lower the sensitivity of mammography. There is chronic nodularity bilaterally. There is no discrete abnormality. No significant changes when compared with prior studies. ASSESSMENT: Benign, BI-RAD 2 RECOMMENDATION: Routine screening mammogram of both breasts in 1 year.
== END | disposition home or self-care (01) ==
LOC: RADMAMWWP 08:40
PROVIDERS: ATTEND Obstetrics & Gynecology
DX: Z12.31 Encounter for screening mammogram for malignant neoplasm of breast (principal)
CPT/HCPCS: 77067

== ENCOUNTER → 2020-07-21 | Outpatient (CLI) | payer MEDICARE ==
--- NOTE | 2020-07-21 22:52 | MR ---
EXAMINATION TYPE: MR brain/cspine wo DATE OF EXAM: 07/21/2020 COMPARISON: 09/28/2017 HISTORY: Neck pain, headaches, BUE weakness CONTRAST: Performed utilizing 0 mL intravenous Gadavist gadolinium contrast. TECHNIQUE: Multiplanar, multiecho imaging on a 3.0 Nataly magnet is performed through the brain. Stud y is performed within 24 hours of arrival to the hospital. The craniovertebral junction is normal. The pituitary is normal. Diffusion-weighted imaging is performed. No abnormal hyperintensity is present to suggest an acute i ntracranial infarct or acute ischemic change. There multiple bilateral deep white matter changes greater than expected for the patient age. Reference lesions right subcortical parietal lobe measuring 0.6 cm. Series 501 image 20. A 0.6 cm sub cortical white matter change left frontal lobe. Series 501 image 18. Ventricles and sulci are appropriate for the patient age. IMPRESSIONS: 1. Multiple bilateral deep white matter changes increasing from comparison. Differential diagnosis in cludes microvascular ischemic change and multiple sclerosis. Vasculitis could be considered. Other et iologies are less likely. EXAMINATION TYPE: MR brain/cspine wo DATE OF EXAM: 07/21/2020 COMPARISON: 09/28/2017 HISTORY: Neck pain, headaches, BUE weakness CONTRAST: Performed utilizing 0 mL intravenous Gadavist gadolinium contrast. TECHNIQUE: Multiplanar multiecho imaging on a 3.0 Nataly magnet is performed through the cervical spin e. FINDINGS: The craniovertebral junction is normal. Vertebral body alignment is normal. No focal disc herniation is evident. Disc heights are preserved. There is diffuse disc desiccation. V ertebral body heights are preserved. Tiny central protrusion is present at C3-4 with minimal anterior thecal sac compression. No cord cont act is evident. Neural foramen are patent. IMPRESSIONS: 1. Minimal protrusion C3-4 without cord contact or spinal canal stenosis. 2. Mild diffuse disc desiccation without loss of disc height.
== END | disposition home or self-care (01) ==
LOC: RADMRIMAIN 21:39
PROVIDERS: ATTEND Psychiatry & Neurology Neurology
DX: M50.21 Other cervical disc displacement, high cervical region (principal); M50.30 Other cervical disc degeneration, unspecified cervical region; R90.89 Other abnormal findings on diagnostic imaging of central nervous system; R51.9 Headache, unspecified; M54.81 Occipital neuralgia; R20.2 Paresthesia of skin; R41.3 Other amnesia
CPT/HCPCS: 70551; 72141

== ENCOUNTER 2020-08-19 10:04 | Emergency (ER) | payer MEDICARE ==
[2020-08-19 10:15] VITALS: TEMP 97.4
[2020-08-19] MEDS ORDERED: METOCLOPRAMIDE 5 MG/ML 2 ML VIAL IVP STA (11:17)
[2020-08-19] MEDS ORDERED: SODIUM CHLORIDE 0.9% 1,000 ML IV STA (11:17)
[2020-08-19] MEDS ORDERED: KETOROLAC 15 MG/ML 1 ML VIAL IVP STA (11:17)
[2020-08-19] MEDS ORDERED: diphenhydrAMINE 50 MG/ML 1 ML VIAL IVP STA (11:17)
--- NOTE | 2020-08-19 11:25 | ED ---
General Adult HPI - General Chief complaint: Headache Stated complaint: Headache/not feeling well Time Seen by Provider: 08/19/20 10:38 Source: patient, family Mode of arrival: ambulatory Limitations: no limitations - History of Present Illness Initial comments: 69-year-old female patient presents to the emergency department today reporting pounding heart weakness, shaking. Patient states with activity she feels her heart pounding in her chest. Denies any shortness of breath or chest pain with this. States that she has been having problems with headache since June. The states that she has a headache on a daily basis. States the pain starts in her neck and radiates up over her head. States the pain waxes and wanes but is mostly always present. She reports nausea with this. States she has seen her primary care physician and neurology for this. She had MRI which showed white matter changes but no other abnormalities. She was started on medications by her neurologist which have not helped. She is reporting headache today at a 5 out of 10 on the pain scale. Denies numbness, tingling, weakness to her extremities. She does report that she has been eating less and has lost 4 pounds unintentionally over the last couple of months. Patient denies any recent rash, fever, chills, cough, abdominal pain, vomiting, diarrhea, constipation, back pain, hematuria, dysuria, urinary urgency, urinary frequency, or any other complaints. - Related Data Home Medications Medication Instructions Recorded Confirmed Cholecalciferol [Vitamin D3 (25 1,000 unit PO DAILY 06/15/17 08/19/20 Mcg = 1000 Iu)] Calcium Carbonate/Vitamin D3 1 tab PO BID 08/19/20 08/19/20 [Calcium 500 mg-Vit D3 5 mcg (200 Unit)] Cyclobenzaprine [Flexeril] 5 mg PO TID PRN 08/19/20 08/19/20 Metoprolol Tartrate [Lopressor] 12.5 mg PO BID 08/19/20 08/19/20 Red Yeast Rice 600 mg PO BID 08/19/20 08/19/20 Previous Rx's Medication Instructions Recorded Nitroglycerin Sl Tabs [Nitrostat] 0.4 mg SUBLINGUAL Q5M PRN #25 tab 04/22/18 Ondansetron [Zofran ODT] 4 mg PO Q8HR PRN #10 tab 08/19/20 Allergies Allergy/AdvReac Type Severity Reaction Status Date / Time levofloxacin [From Levaquin] Allergy Unknown Verified 08/19/20 12:09 Sulfa (Sulfonamide Allergy Unknown Verified 08/19/20 12:09 Antibiotics) zonisamide Allergy Swelling Verified 08/19/20 12:09 acetaminophen AdvReac ELEVATED Verified 08/19/20 12:09 [From Tylenol-Codeine #3] LIVER ENZYMES amoxicillin trihydrate AdvReac Chest Pain Verified 08/19/20 12:09 [From Augmentin] caffeine AdvReac Rapid Verified 08/19/20 12:09 Heart Rate codeine phosphate AdvReac Nausea & Verified 08/19/20 12:09 [From Tylenol-Codeine #3] Vomiting hydromorphone HCl AdvReac Chest Verified 08/19/20 12:09 [From Dilaudid] Pain,induced panic attack feeling morphine AdvReac Nausea & Verified 08/19/20 12:[address] home potassium clavulanate AdvReac Chest Pain Verified 08/19/20 12:09 [From Augmentin] propoxyphene AdvReac Nausea & Verified 08/19/20 12:09 [From Darvocet-N 100] Vomiting rimegepant [From Nurtec ODT] AdvReac "HEADACHE Verified 08/19/20 12:09 WORSE" Review of Systems ROS Statement: Those systems with pertinent positive or pertinent negative responses have been documented in the HPI. ROS Other: All systems not noted in ROS Statement are negative. Past Medical History Past Medical History: Hyperlipidemia Additional Past Medical History / Comment(s): intermittent nausea,palpatations,BACK PAIN,elevated pancreatic enzymes History of Any Multi-Drug Resistant Organisms: None Reported Past Surgical History: Cholecystectomy, Hernia Repair, Tubal Ligation Additional Past Surgical History / Comment(s): Whipple Procedure, Lipoma removed from left leg and under breasts, ERCP,pain injections to back Past Anesthesia/Blood Transfusion Reactions: Previous Problems w/ Anesthesia Additional Past Anesthesia/Blood Transfusion Reaction / Comment(s): states "had a cocktail type of anesthesia for pain injection to back and when coming out of anesthesia was awake but couldn't respond" Past Psychological History: Anxiety, Panic Disorder Smoking Status: Never smoker Past Alcohol Use History: None Reported Past Drug Use History: None Reported - Past Family History Brother(s) Family Medical History: Myocardial Infarction ([place]) Additional Family Medical History / Comment(s): at age 56,2nd brother at 50's with stomach CA Sister(s) Family Medical History: Cancer General Exam Limitations: no limitations General appearance: alert, in no apparent distress, other (Social well- developed, well-nourished adult female patient in no acute distress. Vital signs upon presentation are temperature 97.4F, pulse 74, respirations 18, blood pressure 126/69, pulse ox 96% on room air.) Eye exam: Present: normal appearance, PERRL, EOMI. Absent: scleral icterus, conjunctival injection, nystagmus, periorbital swelling ENT exam: Present: normal exam, normal oropharynx, mucous membranes moist Respiratory exam: Present: normal lung sounds bilaterally. Absent: respiratory distress, wheezes, rales, rhonchi, stridor Cardiovascular Exam: Present: regular rate, normal rhythm, normal heart sounds. Absent: systolic murmur, diastolic murmur, rubs, gallop, clicks GI/Abdominal exam: Present: soft, normal bowel sounds. Absent: distended, tenderness, guarding, rebound, rigid Extremities exam: Present: normal inspection, full ROM, normal capillary refill. Absent: tenderness, pedal edema, joint swelling, calf tenderness Neurological exam: Present: alert, oriented X3, CN II-XII intact Expanded Speech: Present: fluid speech Cranial nerves: EOM's Intact: Normal Motor strength exam: RUE: 5, LUE: 5, RLE: 2/1, LLE: 2/1 Psychiatric exam: Present: normal affect, normal mood Skin exam: Present: warm, dry, intact, normal color. Absent: rash Course Vital Signs 08/19/20 08/19/20 10:08 13:39 Temperature 97.4 F L Pulse Rate 74 66 Respiratory 18 16 Rate Blood Pressure 126/69 131/65 O2 Sat by Pulse 96 99 Oximetry EKG Findings - EKG Comments: EKG Findings:: EKG obtained at 1158 shows normal sinus rhythm with a ventricular rate of 61, MD interval 138, QRS duration 90, QT 444, QTC 446. No evidence of ST elevation or depression. Medical Decision Making - Medical Decision Making 69-year-old female patient presented to the emergency department today for evaluation of weakness and shakiness as well as headache. Patient has had headache since early June and has been evaluated by neurology on, they are trialing medications she did have MRI which was negative. Patient did admit to not eating. Physical examination is unremarkable. She is neurologically intact with no focal deficits. Lab work was obtained and results are unremarkable. EKG was unremarkable. She did give IV fluids and medications for headache. Upon reevaluation she states her headache is much better. She is feeling better. We did discuss supplementing her diet with protein shakes to increase calories. She is instructed to follow-up with the primary care physician for recheck in 1-2 days. Return parameters were discussed in detail. She verbalizes understanding and agrees with this plan. Case discussed with my attending Dr. Webb. - Lab Data Result diagrams: 08/19/20 11:46 08/19/20 11:46 Lab Results 08/19/20 08/19/20 08/19/20 Range/Units 11:46 11:46 11:46 WBC 5.2 (3.8-10.6) k/uL RBC 4.58 (3.80-5.40) m/uL Hgb 12.8 (11.4-16.0) gm/dL Hct 38.7 (34.0-46.0) % MCV 84.4 (80.0-100.0) fL MCH 28.0 (25.0-35.0) pg MCHC 33.2 (31.0-37.0) g/dL RDW 13.6 (11.5-15.5) % Plt Count 295 (150-450) k/uL MPV 7.0 Neutrophils % 68 % Lymphocytes % 22 % Monocytes % 6 % Eosinophils % 2 % Basophils % 0 % Neutrophils # 3.6 (1.3-7.7) k/uL Lymphocytes # 1.1 (1.0-4.8) k/uL Monocytes # 0.3 (0-1.0) k/uL Eosinophils # 0.1 (0-0.7) k/uL Basophils # 0.0 (0-0.2) k/uL PT 9.9 (9.0-12.0) sec INR 0.9 (<1.2) APTT 23.5 (22.0-30.0) sec Sodium (137-145) mmol/L Potassium (3.5-5.1) mmol/L Chloride (98-107) mmol/L Carbon Dioxide (22-30) mmol/L Anion Gap mmol/L BUN (7-17) mg/dL Creatinine (0.52-1.04) mg/dL Est GFR (CKD-EPI)AfAm (>60 ml/min/1.73 sqM) Est GFR (CKD-EPI)NonAf (>60 ml/min/1.73 sqM) Glucose (74-99) mg/dL Calcium (8.4-10.2) mg/dL Magnesium (1.6-2.3) mg/dL Total Bilirubin (0.2-1.3) mg/dL AST (14-36) U/L ALT (4-34) U/L Alkaline Phosphatase (38-126) U/L Troponin I (0.000-0.034) ng/mL Total Protein (6.3-8.2) g/dL Albumin (3.5-5.0) g/dL TSH (0.465-4.680) mIU/L Urine Color Yellow Urine Appearance Clear (Clear) Urine pH 6.0 (5.0-8.0) Ur Specific [employer] 1.014 (1.001-1.035) Urine Protein Negative (Negative) Urine Glucose (UA) Negative (Negative) Urine Ketones Trace H (Negative) Urine Blood Small H (Negative) Urine Nitrite Negative (Negative) Urine Bilirubin Negative (Negative) Urine Urobilinogen <2.0 (<2.0) mg/dL Ur Leukocyte Esterase Small H (Negative) Urine RBC 2 (0-5) /hpf Urine WBC 3 (0-5) /hpf Ur Squamous Epith Cells 2 (0-4) /hpf Urine Bacteria Rare H (None) /hpf Hyaline Casts 1 (0-2) /lpf Urine Mucus Few H (None) /hpf 08/19/20 08/19/20 Range/Units 11:46 11:46 WBC (3.8-10.6) k/uL RBC (3.80-5.40) m/uL Hgb (11.4-16.0) gm/dL Hct (34.0-46.0) % MCV (80.0-100.0) fL MCH (25.0-35.0) pg MCHC (31.0-37.0) g/dL RDW (11.5-15.5) % Plt Count (150-450) k/uL MPV Neutrophils % % Lymphocytes % % Monocytes % % Eosinophils % % Basophils % % Neutrophils # (1.3-7.7) k/uL Lymphocytes # (1.0-4.8) k/uL Monocytes # (0-1.0) k/uL Eosinophils # (0-0.7) k/uL Basophils # (0-0.2) k/uL PT (9.0-12.0) sec INR (<1.2) APTT (22.0-30.0) sec Sodium 136 L (137-145) mmol/L Potassium 4.2 (3.5-5.1) mmol/L Chloride 104 (98-107) mmol/L Carbon Dioxide 25 (22-30) mmol/L Anion Gap 7 mmol/L BUN 18 H (7-17) mg/dL Creatinine 0.48 L (0.52-1.04) mg/dL Est GFR (CKD-EPI)AfAm >90 (>60 ml/min/1.73 sqM) Est GFR (CKD-EPI)NonAf >90 (>60 ml/min/1.73 sqM) Glucose 90 (74-99) mg/dL Calcium 9.1 (8.4-10.2) mg/dL Magnesium 2.2 (1.6-2.3) mg/dL Total Bilirubin 0.5 (0.2-1.3) mg/dL AST 26 (14-36) U/L ALT 13 (4-34) U/L Alkaline Phosphatase 78 (38-126) U/L Troponin I <0.012 (0.000-0.034) ng/mL Total Protein 6.8 (6.3-8.2) g/dL Albumin 4.1 (3.5-5.0) g/dL TSH 3.790 (0.465-4.680) mIU/L Urine Color Urine Appearance (Clear) Urine pH (5.0-8.0) Ur Specific [employer] (1.001-1.035) Urine Protein (Negative) Urine Glucose (UA) (Negative) Urine Ketones (Negative) Urine Blood (Negative) Urine Nitrite (Negative) Urine Bilirubin (Negative) Urine Urobilinogen (<2.0) mg/dL Ur Leukocyte Esterase (Negative) Urine RBC (0-5) /hpf Urine WBC (0-5) /hpf Ur Squamous Epith Cells (0-4) /hpf Urine Bacteria (None) /hpf Hyaline Casts (0-2) /lpf Urine Mucus (None) /hpf - Radiology Data Radiology results: report reviewed, image reviewed Two-view x-ray of the chest is obtained. Report is reviewed in its entirety. Impression by Dr. Chapin shows no acute process. Correlate for COPD. Disposition Clinical Impression: Headache, Weakness, Anorexia, Dehydration Disposition: HOME SELF-CARE Condition: Good Instructions (If sedation given, give patient instructions): Weakness (ED), General Headache (ED) Additional Instructions: Increase fluids. Consider getting supplemental protein shakes to increase her daily calorie intake. Follow-up with your neurologist for further evaluation as soon as possible. Follow up with her primary care physician for recheck in 1-2 days. Return to the emergency department for any new, worsening, or concerning symptoms. Prescriptions: Ondansetron [Zofran ODT] 4 mg PO Q8HR PRN #10 tab PRN Reason: Nausea Is patient prescribed a controlled substance at d/c from ED?: No Referrals: Romero Stovall MD [Primary Care Provider] - 1-2 days Time of Disposition: 13:33
[2020-08-19 11:58] LABS: Basophils % (A) 0 %; Eosinophils # (A) 0.1 k/uL (0-0.7); Eosinophils % (A) 2 %; HCT 38.7 % (34.0-46.0); HGB 12.8 gm/dL (11.4-16.0); Lymphocytes # (A) 1.1 k/uL (1.0-4.8); Lymphocytes % (A) 22 %; MCHC 33.2 g/dL (31.0-37.0); MCV 84.4 fL (80.0-100.0); Monocytes # (A) 0.3 k/uL (0-1.0); Monocytes % (A) 6 %; Neutrophils # (A) 3.6 k/uL (1.3-7.7); Neutrophils % (A) 68 %; Platelet Count 295 k/uL (150-450); RBC 4.58 m/uL (3.80-5.40); RDW 13.6 % (11.5-15.5); WBC 5.2 k/uL (3.8-10.6)
[2020-08-19 12:08] LABS: Appearance,Urine Clear (Clear); Bacteria,Urine Rare /hpf; Bilirubin,Urine Negative (Negative); Blood,Urine Small (Negative); Color,Urine Yellow; Glucose,Urine (UA) Negative (Negative); Hyaline Casts,Urine 1 /lpf (0-2); INR 0.9 (<1.2); Ketones,Urine Trace (Negative); Leukocyte Esterase,Urine Small (Negative); Mucus,Urine Few /hpf; Nitrite,Urine Negative (Negative); Partial Thromboplastin Time 23.5 sec (22.0-30.0); Protein,Urine Negative (Negative); Prothrombin Time 9.9 sec (9.0-12.0); RBC,Urine 2 /hpf (0-5); Specific Gravity,Urine 1.014 (1.001-1.035); Squamous Epithelial Cell,Urine 2 /hpf (0-4); Urobilinogen,Urine <2.0 mg/dL (<2.0); WBC,Urine 3 /hpf (0-5)
[2020-08-19 12:12] LABS: ALT 13 U/L (4-34); AST 26 U/L (14-36); African American GFR (CKD) >90 (>60 ml/min/1.73 sqM); Albumin 4.1 g/dL (3.5-5.0); Alkaline Phosphatase 78 U/L (38-126); Anion Gap 7 mmol/L; Blood Urea Nitrogen 18 mg/dL (7-17); Calcium 9.1 mg/dL (8.4-10.2); Carbon Dioxide 25 mmol/L (22-30); Chloride 104 mmol/L (98-107); Glucose 90 mg/dL (74-99); Magnesium 2.2 mg/dL (1.6-2.3); Non-African American GFR(CKD) >90 (>60 ml/min/1.73 sqM); Potassium 4.2 mmol/L (3.5-5.1); Sodium 136 mmol/L (137-145); Total Bilirubin 0.5 mg/dL (0.2-1.3); Total Protein 6.8 g/dL (6.3-8.2)
--- NOTE | 2020-08-19 12:27 | XR ---
EXAMINATION TYPE: XR chest 2V DATE OF EXAM: 08/19/2020 COMPARISON: 04/19/2018 TECHNIQUE: PA and lateral views submitted. HISTORY: Dysrhythmia FINDINGS: The lungs are clear and there is no pneumothorax, pleural effusion, or focal pneumonia. Hyperinflat ion. Hypertrophic change of the spine. Postsurgical change involving the right upper quadrant. IMPRESSION: 1. No acute process. Correlate for COPD.
[2020-08-19] MEDS ORDERED: DEXAMETHASONE SOD PHOSPHATE 10 MG/ML 1 ML VIAL IV STA (13:31)
[2020-08-19] MEDS ORDERED: ONDANSETRON 4 MG ODT STARTER PACK 2 TAB BTL PO STA (13:32)
[2020-08-19 13:43] VITALS: BP 131/65; PULSE 66; RESP 16
== END 2020-08-19 13:44 | disposition home or self-care (01) ==
LOC: EC 10:04
DX: R51.9 Headache, unspecified (principal); R63.0 Anorexia; R53.1 Weakness; E78.5 Hyperlipidemia, unspecified; Z90.49 Acquired absence of other specified parts of digestive tract; Z98.51 Tubal ligation status
CPT/HCPCS: 36415; 93005; 80053; 84443; 83735; 84484; 85025; 85610; 85730; 81001; 71046; 99284; 96374; 96375; 96361; J1200; J1100; J2765; J1885; S0119

== ENCOUNTER → 2020-08-20 | Outpatient (CLI) | payer MEDICARE ==
[2020-08-20 08:41] VITALS: BP 134/69; PULSE 71; RESP 18; TEMP 97.9
== END ==
LOC: PROCWHC3 08:28
PROVIDERS: ATTEND Internal Medicine
DX: M81.0 Age-related osteoporosis without current pathological fracture (principal)
CPT/HCPCS: 96365; J3489

== ENCOUNTER → 2020-09-06 | Outpatient (CLI) | payer MEDICARE ==
[2020-09-06 08:54] VITALS: BP 135/85; PULSE 72; RESP 16; TEMP 97.5
--- NOTE | 2020-09-06 09:29 | P.PAINCN ---
History of Present Illness - Reason for Consult Consult date: 09/06/20 - History of Present Illness This 69 years old female with a chronic history of severe neck pain and headaches , the symptoms started few years ago the intensity of the headache increased over the last few weeks and is constant, increased with any activity and with neck movement, the headache radiated from the base of the skull to the top of the head, she denies any numbness or tingling in the upper extremity she denies any weakness in upper or lower extremities, she denies any aura, she denies any visual changes, she denies any vomiting, she was treated previously with the occipital nerve block and she had good result Past Medical History Past Medical History: GERD/Reflux, Hyperlipidemia, Skin Disorder Additional Past Medical History / Comment(s): intermittent nausea, occ.palpatations,BACK PAIN,elevated pancreatic and liver enzymes, hx migraines, constipation, osteoporosis, eczema, eposide of blood in urine 6 months ago History of Any Multi-Drug Resistant Organisms: None Reported Past Surgical History: Cholecystectomy, Heart Catheterization, Hernia Repair, Tubal Ligation Additional Past Surgical History / Comment(s): Whipple Procedure, Lipoma removed from left leg and under breasts, ERCP, pain injections to back, heart cath x 2, D&C Past Anesthesia/Blood Transfusion Reactions: Previous Problems w/ Anesthesia Additional Past Anesthesia/Blood Transfusion Reaction / Comm: states "had a cocktail type of anesthesia for pain injection to back and when coming out of anesthesia was awake but couldn't respond" Past Psychological History: Anxiety, Panic Disorder Additional Psychological History / Comment(s): . Smoking Status: Former smoker Past Alcohol Use History: None Reported Additional Past Alcohol Use History / Comment(s): STARTED SMOKING AT AGE 17 ,QUIT 1979, SMOKED 1PPD Past Drug Use History: None Reported - Past Family History Brother(s) Family Medical History: Cancer, Myocardial Infarction ([place]) Additional Family Medical History / Comment(s): stomach cancer Sister(s) Family Medical History: Cancer Additional Family Medical History / Comment(s): lymphoma Medications and Allergies Home Medications Medication Instructions Recorded Confirmed Type Cholecalciferol [Vitamin D3 (25 2,000 unit PO BID 06/15/17 08/31/20 History Mcg = 1000 Iu)] Nitroglycerin Sl Tabs [Nitrostat] 0.4 mg SUBLINGUAL Q5M PRN #25 tab 04/22/18 08/31/20 Rx Calcium Carbonate/Vitamin D3 1 tab PO BID 08/19/20 08/31/20 History [Calcium 500 mg-Vit D3 5 mcg (200 Unit)] Metoprolol Tartrate [Lopressor] 12.5 mg PO BID 08/19/20 08/31/20 History Amitriptyline HCl [Elavil] 10 mg PO HS 08/31/20 08/31/20 History Aspirin [Adult Low Dose Aspirin EC] 81 mg PO DAILY 08/31/20 08/31/20 History Prochlorperazine [Compazine] 10 mg PO Q6HR PRN 08/31/20 08/31/20 History Reclast Infusion 1 applicate IV DIRECTED 08/31/20 08/31/20 History Allergies Allergy/AdvReac Type Severity Reaction Status Date / Time cyclobenzaprine Allergy maeks Verified 08/31/20 14:24 headache worse levofloxacin [From Levaquin] Allergy Unknown Verified 08/31/20 14:22 prochlorperazine Allergy "made Verified 08/31/20 14:24 headache worse" rizatriptan Allergy made Verified 08/31/20 14:25 headache worse Sulfa (Sulfonamide Allergy Unknown Verified 08/31/20 14:22 Antibiotics) zonisamide Allergy Swelling Verified 08/31/20 14:22 acetaminophen AdvReac ELEVATED Verified 08/31/20 14:22 [From Tylenol-Codeine #3] LIVER ENZYMES amoxicillin trihydrate AdvReac Chest Pain Verified 08/31/20 14:22 [From Augmentin] caffeine AdvReac Rapid Verified 08/31/20 14:22 Heart Rate codeine phosphate AdvReac Nausea & Verified 08/31/20 14:22 [From Tylenol-Codeine #3] Vomiting hydromorphone HCl AdvReac Chest Verified 08/31/20 14:22 [From Dilaudid] Pain,induced panic attack feeling morphine AdvReac Nausea & Verified 08/31/20 14:[address] potassium clavulanate AdvReac Chest Pain Verified 08/31/20 14:22 [From Augmentin] propoxyphene AdvReac Nausea & Verified 08/31/20 14:22 [From Darvocet-N 100] Vomiting rimegepant [From Nurtec ODT] AdvReac "HEADACHE Verified 08/31/20 14:23 WORSE"," burning sensation in head" Physical Exam Vitals: Vital Signs Temp Pulse Resp BP Pulse Ox 09/06/20 08:50 97.5 F L 72 16 135/85 99 - Constitutional Physical Examinations : -Constitutiona : Cooperative , not in acute distress . -HEENT : nech : supple , no Lymphadenopathy , normal thyroid size . : eyes : no ptosis , no icterus, no photophobia . - neurologic : Cranial nerve II to XII intact , no focal neurological deffecit . -psychatric : alert , oriented X 3 , appropriate affect , intact judgment and insight . -Lymphatic : no Lymphadenopathy . - musculoskeltal : Cervical Spine motor stregnth in the deltoid and biceps, normal right side , normal Left side motor stregnth biceps and the wrist extensors normal right side ,normal left side . motor stregnth in the triceps muscle . normal Right side , normal Left side deep tendon reflexes normal at the biceps , normal at Brachioradialis , normal at triceps. cervical facet loading test: Positive Bilaterally Spurling test= negative bilaterally. Neck distraction test= negative bilaterally. Temitope sign= negative bilaterally Severe tenderness in the occipital nerve bilaterally Lumber spine moter stegnth lower extremities ,thigh and legs 5/5 Right side , 5/5 Left side Results Comments: MRI of the cervical spine= C3 4 disc protrusion and disc this occasion MRI of the brain reviewed Assessment and Plan Plan: Assessment and plan=1-greater occipital nerve neuralgia (bilateral ). 2-cervicogenic headache. 3-cervical spondylosis The patient would be good candidate to have bilateral occipital nerve block x2 , she continued to have headache after occipital nerve block then maybe she will be good candidate to have diagnostic medial branch block cervical area at C2, C3, third occipital nerve Time with Patient: Greater than 30 PQRS Measure Charge Sheet Measure #130: Documentation of Current Meds in Medical Chart: Patient's medications documented in chart Measure #226: Tobacco Use: Screen & Cessation Intervention: Pt not a tobacco user Measure #111: Pneumonia Vaccination: Pneumococcal vaccine NOT administered or previously given Measure #47: Advance Care Plan: Advance care planning discussed & documented, pt chose/unable to give Measure #412: Opioid Treatment Agreement: No documentation of signed opioid treatment agreement Measure #408: Opioid Therapy Follow-up Evaluation: Patient had NO f/u eval minimum every 3 months during opioid therapy Measure #317: Preventitive Care & Scrn High Bld Press & F/U: Normal blood pressure, f/u not required Measure #128: Body Mass Index (BMI) Screening & Follow-up: BMI documented BELOW normal parameters - f/u documented Measure #131: Pain Assessment & Follow-up: Pain positive & plan documented, Follow-up scheduled Measure #431: Unhealthy Alcohol Use Preventative Care & Scrn: Patient not identified as an unhealthy alcohol user PQRS Narrative: Smoking Status Former smoker Blood Pressure 135/85 Pain Intensity [Posterior Neck 5 ] Hx Alcohol Use (MH) No Home Medications: Ambulatory Orders Cholecalciferol [Vitamin D3 (25 Mcg = 1000 Iu)] 2,000 unit PO BID 06/15/17 Nitroglycerin Sl Tabs [Nitrostat] 0.4 mg SUBLINGUAL Q5M PRN #25 tab 04/22/18 Calcium Carbonate/Vitamin D3 [Calcium 500 mg-Vit D3 5 mcg (200 Unit)] 1 tab PO BID 08/19/20 Metoprolol Tartrate [Lopressor] 12.5 mg PO BID 08/19/20 Amitriptyline HCl [Elavil] 10 mg PO HS 08/31/20 Aspirin [Adult Low Dose Aspirin EC] 81 mg PO DAILY 08/31/20 Prochlorperazine [Compazine] 10 mg PO Q6HR PRN 08/31/20 Reclast Infusion 1 applicate IV DIRECTED 08/31/20
== END ==
LOC: PNWHC3 08:35
PROVIDERS: ATTEND Specialist
DX: M47.812 Spondylosis without myelopathy or radiculopathy, cervical region (principal); M54.81 Occipital neuralgia; G44.89 Other headache syndrome; E78.5 Hyperlipidemia, unspecified; F41.9 Anxiety disorder, unspecified; Z87.891 Personal history of nicotine dependence
CPT/HCPCS: 99211

== ENCOUNTER → 2020-09-24 | Outpatient (CLI) | payer MEDICARE ==
[2020-09-24 19:44] LABS: INR 0.89 (0.90-1.11); Partial Thromboplastin Time 27.6 sec (23.5-31.0); Prothrombin Time 9.8 sec (9.9-11.9)
[2020-09-24 20:59] LABS: Cardiolipin IgA Antibody 31.9 U/mL
[2020-09-25 05:23] LABS: Cardiolipin Ab IgG Interp Positive (NEGATIVE); Cardiolipin Ab IgM Interp NEGATIVE (NEGATIVE); Cardiolipin IgM Antibody 0.6 U/mL
[2020-09-27 14:02] LABS: APTT 40 Sec(s) (<43); DRVVT 1:1 Mix 42 Sec(s) (<44); Dilute Russell Viper Venom 51 Sec(s) (<44)
== END | disposition home or self-care (01) ==
LOC: LABWHC1 10:12
PROVIDERS: ATTEND Psychiatry & Neurology Neurology
DX: I63.9 Cerebral infarction, unspecified (principal)
CPT/HCPCS: 36415; 82607; 82747; 83090; 85610; 85613; 85652; 85730; 85732; 86038; 86147; 86618

== ENCOUNTER → 2020-10-25 | Outpatient (CLI) | payer MEDICARE ==
[2020-10-25 14:39] LABS: % Iron Saturation 11.97 (12.00-45.00); HCT 37.6 % (37.2-46.3); HGB 11.7 g/dL (12.0-15.0); MCHC 31.1 g/dL (32.0-37.0); MCV 86.6 fL (80.0-97.0); Mean Platelet Volume 10.1 fL (9.5-12.2); Platelet Count 275 X 10*3/uL (140-440); RBC 4.34 X 10*6/uL (4.10-5.20); WBC 5.17 X 10*3/uL (4.50-10.00)
[2020-10-25 14:48] LABS: Ferritin 47.8 ng/mL (10.0-291.0)
== END | disposition home or self-care (01) ==
LOC: LABWHC1 09:58
PROVIDERS: ATTEND Family Medicine
DX: E61.1 Iron deficiency (principal)
CPT/HCPCS: 36415; 82728; 83540; 83550; 85027

== ENCOUNTER → 2020-11-08 | Outpatient (CLI) | payer MEDICARE | END | disposition home or self-care (01) | LOC: LABWHC1 07:45 | PROVIDERS: ATTEND Psychiatry & Neurology Neurology | DX: E53.8 Deficiency of other specified B group vitamins (principal) | CPT/HCPCS: 36415; 82607 ==

== ENCOUNTER → 2021-01-14 | Outpatient (CLI) | payer MEDICARE ==
--- NOTE | 2021-01-14 08:06 | US ---
EXAMINATION TYPE: US thyroid st tissue head/neck DATE OF EXAM: 01/14/2021 COMPARISON: CLINICAL HISTORY: E04.1 SINGLE THYROID NODULE. Follow up thyroid nodules GLAND SIZE: Right Lobe: 4.6 x 1.2 x 1.3 cm Overall Parenchyma: heterogenous Left Lobe: 3.5 x 0.9 x 0.7 cm Overall Parenchyma: homogeneous Isthmus Thickness: 0.2 cm NODULES RIGHT: # of nodules measured on right: 1 1. 2.0 X 1.7 x 1.1 cm, lower mid, solid or almost completely solid, hyperechoic nodule, which is wi sweetie than tall, with smooth margins, without echogenic foci. TR 3 Prior size: 1.9 x 1.1 x 1.6 cm 2. Previously seen mid thyroid nodule not visualized on today's exam LEFT: # of nodules measured on left: 1 1. 0.5 X 0.5 x 0.4 cm, lower mid, solid or almost completely solid, hyperechoic nodule, which is wi sweetie than tall, with smooth margins, without echogenic foci. Prior size: 0.4 x 0.5 x 0.4 cm ISTHMUS: # of nodules measured in the isthmus: 1 1. 0.6 X 0.6 x 0.3 cm solid or almost completely solid, hypoechoic nodule, which is wider than tall , with smooth margins, without echogenic foci. Prior size: 0.5 x 0.3 x 0.6 cm Bilateral neck scanned, no evidence of lymphadenopathy. IMPRESSION: Mildly suspicious nodule inferior right lobe thyroid. Follow-up thyroid ultrasound 1 year is recommen ded. 2017 ACR TI-RADS LEVEL: TR-RADS 3 - Mildly Suspicious: Follow if > 1.5 cm, FNA if > 2.5 cm *Highest TI-RADS level nodule reported
== END | disposition home or self-care (01) ==
LOC: RADUSWWP 07:11
PROVIDERS: ATTEND Family Medicine
DX: E04.2 Nontoxic multinodular goiter (principal)
CPT/HCPCS: 76536

== ENCOUNTER → 2021-06-06 | Outpatient (CLI) | payer MEDICARE ==
[2021-06-06 15:27] LABS: Anion Gap 12.2 mmol/L (10.00-18.00); BUN/Creat Ratio 20.41 Ratio (12.00-20.00); Blood Urea Nitrogen 12.9 mg/dL (9.0-27.0); Calcium 8.8 mg/dL (8.7-10.3); Carbon Dioxide 24.8 mmol/L (20.0-27.5); Non-African American GFR(CKD) 91.4 (60.0-200.0); Potassium 4.2 mmol/L (3.5-5.5)
== END | disposition home or self-care (01) ==
LOC: LABWHC1 08:27
PROVIDERS: ATTEND Internal Medicine
DX: E55.9 Vitamin D deficiency, unspecified (principal); M81.0 Age-related osteoporosis without current pathological fracture
CPT/HCPCS: 36415; 80048; 82306; 82523

== ENCOUNTER → 2021-08-09 | Outpatient (CLI) | payer MEDICARE ==
--- NOTE | 2021-08-09 21:07 | CT ---
EXAMINATION TYPE: CT abdomen pelvis wo con DATE OF EXAM: 08/09/2021 COMPARISON: CT dated 12/05/2019 HISTORY: abd pain CT DLP: 230.8 mGycm Automated exposure control for dose reduction was used. TECHNIQUE: Helical acquisition of images was performed from the lung bases through the pelvis. No IV contrast administration. FINDINGS: LUNG BASES: Stable 3 mm faint nodule in the right lung base. Left posterior fat-containing diaphragma tic hernia. LIVER/GB: Pneumobilia, appreciated previously. No definite hepatic focal lesion by this nonenhanced C T scan. Previous cholecystectomy. Suspected choledochojejunostomy. PANCREAS: Suspected previous pancreatic head resection and pancreaticojejunostomy. No definite focal lesion identified in the visualized portion of the pancreas. SPLEEN: No significant abnormality is seen. ADRENALS: No significant abnormality is seen. KIDNEYS: Suspected right upper pole renal cyst measuring up to 2 cm with tiny cyst at the upper pole of the left kidney without gross suspicious feature, otherwise unremarkable kidneys. FREE AIR: No free air is visualized RETROPERITONEAL ADENOPATHY: None visualized REPRODUCTIVE ORGANS: No gross uterine or adnexal mass yet suboptimally assessed. Questionable pelvic adhesions. URINARY BLADDER: Nondistended. PELVIC ADENOPATHY: None visualized. OSSEOUS STRUCTURES: Old healed fractures of the posterior aspects of the left 11th and 12th ribs. De generative changes of the sacroiliac joints. No aggressive bone lesion. BOWEL: Suspected previous gastrojejunostomy and previous duodenal resection. No evidence of bowel ob struction. Scattered uncomplicated colonic diverticulosis most evident in the sigmoid colon. Scattere d segments of mild colonic wall thickening, nonspecific, please correlate with coloscopy results. Nor mal appendix. OTHER: Scattered arterial atherosclerotic calcifications. No sizable ascites. Anterior abdominal wall hernia containing fat and portion of bowel with wide neck and seen just superior to the umbilicus. R ight lower quadrant anterior abdominal wall surgical clips likely related to previous hernia repair. IMPRESSION: No definite acute abnormality or suspicious lesion by this nonenhanced CT scan. Postsurgical changes and other incidental findings as detailed above.
== END | disposition home or self-care (01) ==
LOC: RADCTMAIN 16:44
PROVIDERS: ATTEND Family Medicine
DX: R10.9 Unspecified abdominal pain (principal)
CPT/HCPCS: 74176

== ENCOUNTER → 2021-08-17 | Outpatient (CLI) | payer MEDICARE ==
--- NOTE | 2021-08-18 14:02 | MM ---
Reason for exam: screening (asymptomatic). Last mammogram was performed 1 year and 1 month ago. History: Patient is postmenopausal. US discontinued breast bx LT of the left breast, February 18, 2015. Took hormonal contraceptives for 1 year beginning at age 21. Physical Findings: A clinical breast exam by your physician is recommended on an annual basis and results should be correlated with mammographic findings. MG 3D Screening Mammo W/Cad Bilateral CC and MLO view(s) were taken. Prior study comparison: July 05, 2020, bilateral MG screening mammo w CAD. June 03, 2019, bilateral MG 3d screening mammo w/cad. The breast tissue is heterogeneously dense. This may lower the sensitivity of mammography. Stable vascular calcifications. There is no discrete abnormality. No significant changes when compared with prior studies. ASSESSMENT: Benign, BI-RAD 2 RECOMMENDATION: Routine screening mammogram of both breasts in 1 year.
== END | disposition home or self-care (01) ==
LOC: RADMAMWWP 07:03
PROVIDERS: ATTEND Obstetrics & Gynecology
DX: Z12.31 Encounter for screening mammogram for malignant neoplasm of breast (principal); Z78.0 Asymptomatic menopausal state
CPT/HCPCS: 77063; 77067

== ENCOUNTER → 2021-11-14 | Outpatient (CLI) | payer MEDICARE ==
[2021-11-14 22:31] LABS: ALT 28 U/L (8-44); AST 19 U/L (13-35); Albumin 3.9 g/dL (3.8-4.9); Albumin/Globulin Ratio 2.05 (1.60-3.17); Alkaline Phosphatase 72 U/L (41-126); BUN/Creat Ratio 37.33 Ratio (12.00-20.00); Blood Urea Nitrogen 22.4 mg/dL (9.0-27.0); Calcium 8.9 mg/dL (8.7-10.3); Carbon Dioxide 23.5 mmol/L (20.0-27.5); Chloride 105 mmol/L (96-109); Globulin 1.9 g/dL (1.6-3.3); Glucose 83 mg/dL (70-110); Non-African American GFR(CKD) 92.4 (60.0-200.0); Potassium 4.4 mmol/L (3.5-5.5); Sodium 140 mmol/L (135-145); Total Bilirubin <0.15 mg/dL (0.30-1.20); Total Protein 5.8 g/dL (6.2-8.2)
== END | disposition home or self-care (01) ==
LOC: LABWHC1 15:21
PROVIDERS: ATTEND Nurse Practitioner Family
DX: K58.9 Irritable bowel syndrome, unspecified (principal)
CPT/HCPCS: 36415; 80053

== ENCOUNTER → 2022-01-18 | Outpatient (CLI) | payer MEDICARE ==
--- NOTE | 2022-01-18 08:00 | US ---
EXAMINATION TYPE: US thyroid st tissue head/neck DATE OF EXAM: 01/18/2022 COMPARISON: NONE CLINICAL HISTORY: 71-year-old female E04.1 Nontoxic single thyroid nodule. TECHNIQUE: Multiple sonographic images of the thyroid gland are obtained. FINDINGS: GLAND SIZE: Right Lobe: 4.2 x 1.0 x 1.2 cm Overall Parenchyma: heterogenous Left Lobe: 3.2 x 1.0 x 0.9 cm Overall Parenchyma: heterogeneous Isthmus Thickness: 0.3 cm NODULES RIGHT: # of nodules measured on right: 1 1. 1.9 X 1.2 x 1.8 cm, lower mid, solid or almost completely solid, isoechoic TR3 nodule, which is wider than tall, with smooth margins, without echogenic foci. Prior size: 2.0 x 1.1 x 1.7 cm LEFT: # of nodules measured on left: 1 1. 0.5 X 0.4 x 0.6 cm, lower mid, solid or almost completely solid, isoechoic TR4 nodule, which is wider than tall, with smooth margins, with echogenic foci suggesting some microcalcification. Prior size: 0.4 x 0.4 x 0.5 cm ISTHMUS: # of nodules measured in the isthmus: 1 1. 0.5 X 0.4 x 0.6 cm solid or almost completely solid, isoechoic TR 3 nodule, which is wider than tall, with smooth margins, without echogenic foci. Prior size: 0.6 x 0.3 x 0.6 cm Bilateral neck scanned, no evidence of lymphadenopathy. Stable nodules when compared to prior. IMPRESSION: 3 nodules remain relatively unchanged in the thyroid gland. Largest is a TR3 nodule measuring 1.9 cm in the right lobe. There is a TR4 nodule in the left lobe measuring 6 mm versus 5 mm, previously.
== END | disposition home or self-care (01) ==
LOC: RADUSWWP 06:50
PROVIDERS: ATTEND Family Medicine
DX: E04.2 Nontoxic multinodular goiter (principal)
CPT/HCPCS: 76536

== ENCOUNTER 2022-02-15 07:56 | Day surgery (SDC) | payer MEDICARE ==
[2022-02-14 10:21] VITALS: BMI 20.2
[~2022-02-15 07:56] MED LIST changes: +LACTATED RINGERS 1,000 ML IV SCH; +LIDOCAINE 1% (10MG/ML) FOR IV START INTRADERMA PRN; -SODIUM CHLORIDE 0.9% 500 ML 500 ML in EMPTY BAG 1 BAG IV PRN; -ZOLEDRONIC ACID 5 MG in SODIUM CHLORIDE 0.9% 100 ML IV NR
[2022-02-15] MEDS ORDERED: LACTATED RINGERS 1,000 ML IV ONE (08:33)
[2022-02-15 08:34] VITALS: TEMP 97.5
[2022-02-15] MEDS ORDERED: PROPOFOL 10 MG/ML 20 ML VIAL IV ONE (09:11)
--- NOTE | 2022-02-15 09:19 | P.PCN ---
Date of Procedure: 02/15/22 Procedure(s) Performed: BRIEF HISTORY: Patient is a 71-year-old, pleasant, white female. Scheduled for an upper endoscopy as a part of evaluation of chronic epigastric pain with intermittent nausea vomiting of several months duration. Lately her symptoms have been progressively getting worse despite being on Protonix 40 mg daily and hence scheduled for an upper endoscopy to evaluate further. She has prior history of Whipple surgery for an adenoma 10 years ago. PROCEDURE PERFORMED: Esophagogastroduodenoscopy with biopsy. PREOPERATIVE DIAGNOSIS: Chronic epigastric pain/intermittent nausea vomiting. IV sedation per anesthesia. PROCEDURE: After informed consent was obtained, the patient was brought into the endoscopy unit. IV sedation was administered by Anesthesia under continuous monitoring. Initially the Olympus GIF-140 video endoscope was inserted into the mouth. Esophagus intubated without any difficulty. It was gradually advanced into the stomach . There was evidence of previous Whipple surgery noted. The gastric remnant had mild diffuse gastritis and biopsies were done from this area.. The Vasyl-en-Y anastomosis also appeared normal. The afferent and efferent loops appeared normal. The scope was then withdrawn into the stomach adequately insufflated with air and upon retroflexion the cardia and the fundus appeared normal. The scope was then withdrawn into the esophagus. The GE junction was located at 39 cm from the incisors. Small hiatal hernia noted. The esophagus appeared normal. There were no erosions or ulcerations seen and the patient tolerated the procedure well. IMPRESSION: 1. Evidence of previous Whipple surgery with distal gastrectomy, Vasyl-en-Y anastomosis. 2. Mild diffuse gastritis. 3. Small hiatal hernia RECOMMENDATIONS: The findings of this examination were discussed with the patient as well as a family. She was advised to follow with the biopsy results.. She was advised to continue with Protonix 40 mg daily and follow antireflux measures.
[2022-02-15 09:44] VITALS: BP 96/63; PULSE 82; RESP 16
== END 2022-02-15 10:15 | disposition home or self-care (01) ==
LOC: ORWHC2ENDO 07:56
PROVIDERS: ATTEND Internal Medicine Gastroenterology
DX: K29.50 Unspecified chronic gastritis without bleeding (principal); K21.00 Gastro-esophageal reflux disease with esophagitis, without bleeding; Z98.890 Other specified postprocedural states; Z79.82 Long term (current) use of aspirin; Z79.899 Other long term (current) drug therapy
CPT/HCPCS: 88305; 43239; J2704

== ENCOUNTER → 2022-05-25 | Outpatient (CLI) | payer MEDICARE ==
[2022-05-25 11:34] LABS: ALT 13 U/L (8-44); AST 19 U/L (13-35); Chol/HDL Ratio 3.41 Ratio; LDL Cholesterol,Calculated 108.2 mg/dL (0.0-131.0); VLDL Calculation 14.82 mg/dL (5.00-40.00)
== END | disposition home or self-care (01) ==
LOC: LABWHC1 07:20
PROVIDERS: ATTEND Internal Medicine Interventional Cardiology
DX: E78.2 Mixed hyperlipidemia (principal)
CPT/HCPCS: 36415; 80061; 84450; 84460

== ENCOUNTER → 2022-06-05 | Outpatient (CLI) | payer MEDICARE ==
[2022-06-05 14:46] LABS: African American GFR (CKD) 105.7 (60.0-200.0); Albumin 4.3 g/dL (3.8-4.9); Albumin/Globulin Ratio 1.8 (1.60-3.17); Anion Gap 10.4 mmol/L (10.00-18.00); BUN/Creat Ratio 23.88 Ratio (12.00-20.00); Blood Urea Nitrogen 14.9 mg/dL (9.0-27.0); Calcium 9.4 mg/dL (8.7-10.3); Carbon Dioxide 26.5 mmol/L (20.0-27.5); Globulin 2.4 g/dL (1.6-3.3); Non-African American GFR(CKD) 91.2 (60.0-200.0); Potassium 3.9 mmol/L (3.5-5.5); Total Bilirubin 0.3 mg/dL (0.30-1.20); Total Protein 6.7 g/dL (6.2-8.2)
== END | disposition home or self-care (01) ==
LOC: LABWHC1 09:08
PROVIDERS: ATTEND Internal Medicine
DX: M81.0 Age-related osteoporosis without current pathological fracture (principal); E55.9 Vitamin D deficiency, unspecified
CPT/HCPCS: 36415; 80053; 82306; 82523

== ENCOUNTER → 2022-08-16 | Outpatient (CLI) | payer MEDICARE ==
--- NOTE | 2022-08-16 12:34 | NM ---
EXAMINATION TYPE: NM gastric emptying static DATE OF EXAM: 08/16/2022 COMPARISON: NONE HISTORY: Epigastric pain, heartburn, reflux, nausea, elevated liver enzymes, Whipple procedure Following administration of 1.8 mCi Tc 99m Sulfur Colloid with 4 ounces of eggs, 1 piece of toast, 8 ounces of water, projection images of the abdomen were obtained 10 minutes post ingestion. Patient Emptying Values 1 Hour 43 % 2 Hours 92 % 3 Hours 99 % 4 Hours 100 % Gastroesophageal reflux: None IMPRESSION: Gastric emptying: Normal Gastroesophageal reflux: None
== END | disposition home or self-care (01) ==
LOC: RADNMMAIN 06:52
PROVIDERS: ATTEND Internal Medicine Gastroenterology
DX: R11.2 Nausea with vomiting, unspecified (principal)
CPT/HCPCS: 78264; A9541

== ENCOUNTER → 2022-08-18 | Outpatient (CLI) | payer MEDICARE ==
--- NOTE | 2022-08-21 09:27 | MM ---
Reason for Exam: Screening (asymptomatic). Last screening mammogram was performed 12 month(s) ago. Patient History: Menarche at age 14. First Full-Term at age 21. Postmenopausal. Patient has history of breast feeding. Hormonal Contraceptives for 1 year from age 21 until age 22. 02/18/2015, US discontinued breast bx LT on the left side. Risk Values: Estella 5 year model risk: 1.5%. NCI Lifetime model risk: 4.5%. Prior Study Comparison: 02/08/2016 Screening Mammogram, [facility]. 03/23/2017 Bilateral Screening Mammogram, [facility]. 04/08/2018 Bilateral Screening Mammogram, [facility]. 06/03/2019 Bilateral Screening Mammogram, [facility]. 07/05/2020 Bilateral Screening Mammogram, [facility]. 08/17/2021 Bilateral Screening Mammogram, [facility]. Tissue Density: The breast tissue is heterogeneously dense. This may lower the sensitivity of mammography. Findings: Analyzed By CAD. Benign-appearing vascular calcifications bilaterally is redemonstrated. Benign-appearing bilateral axillary lymph nodes are again seen. There is no suspicious new group of microcalcifications or new suspicious mass in either breast. Overall Assessment: Benign, BI-RAD 2 Management: Screening Mammogram of both breasts in 1 year. A clinical breast exam by your physician is recommended on an annual basis and results should be correlated with mammographic findings. Electronically signed and approved by: Jeremías Smith M.D.
== END | disposition home or self-care (01) ==
LOC: RADMAMWWP 07:44
PROVIDERS: ATTEND Obstetrics & Gynecology
DX: Z12.31 Encounter for screening mammogram for malignant neoplasm of breast (principal); Z78.0 Asymptomatic menopausal state
CPT/HCPCS: 77063; 77067

== ENCOUNTER → 2022-12-21 | Outpatient (CLI) | payer MEDICARE ==
--- NOTE | 2022-12-21 15:11 | US ---
EXAMINATION TYPE: US thyroid st tissue head/neck DATE OF EXAM: 12/21/2022 COMPARISON: NONE CLINICAL INDICATION: Female, 72 years old with history of E04.1 THYROID NODULE; thyroid nodule GLAND SIZE: Right Lobe: 5.5 x 1.1 x 1.5 cm Overall Parenchyma: heterogenous Left Lobe: 3.8 x .7 x 1.1 cm Overall Parenchyma: homogeneous Isthmus Thickness: .1 cm NODULES RIGHT: # of nodules measured on right: 1 2nd one on previous not well visualized on today's exam se en in transverse 8 mm. 1. 2.2 X 1.2 x 1.2 cm, lower medial, solid or almost completely solid, hypoechoic nodule, which is wider than tall, with smooth margins, without echogenic foci. Prior size: 1.9 x 1.1 x 1.6 cm LEFT: # of nodules measured on left: Subcentimeter nodule seen. ISTHMUS: # of nodules measured in the isthmus: 0 Bilateral neck scanned, no evidence of lymphadenopathy. IMPRESSION:TR4 Moderately Suspicious: FNA if ? 1.5 cm; Follow if ? 1 cm at 1, 2, 3, and 5 y
== END | disposition home or self-care (01) ==
LOC: RADUSWWP 13:32
PROVIDERS: ATTEND Internal Medicine
DX: E04.1 Nontoxic single thyroid nodule (principal)
CPT/HCPCS: 76536

== ENCOUNTER 2023-01-23 12:38 | Day surgery (SDC) | payer MEDICARE ==
[2023-01-23] MEDS ORDERED: ALPRAZolam 0.25 MG TAB PO PRN (13:19)
[2023-01-23 13:45] VITALS: TEMP 97.6
[2023-01-23 14:27] VITALS: BP 152/68; PULSE 61; RESP 16
--- NOTE | 2023-01-23 14:40 | US ---
ULTRASOUND GUIDED FNA THYROID BIOPSY: CLINICAL HISTORY: 2.2 cm right thyroid nodule requested for FNA. FINDINGS: The procedure was explained to the patient. The risks, complications, benefits and alternatives were discussed and any questions were answered. Informed consent was obtained. Patient was placed supin e on the ultrasound table and prepped and draped in the usual sterile fashion. Utilizing a 25 gauge needle, five passes were made into the requested right thyroid nodule. Patient was stable throughout the procedure. Pathology is pending. All elements of maximal barrier technique were utilized. IMPRESSION: 1. Successful ultrasound guided FNA thyroid biopsy.
== END 2023-01-23 14:30 | disposition home or self-care (01) ==
LOC: RADPROMAIN 12:38
PROVIDERS: ATTEND Internal Medicine
DX: E04.1 Nontoxic single thyroid nodule (principal)
CPT/HCPCS: 10005; 88173; 88305

== ENCOUNTER → 2023-06-20 | Outpatient (CLI) | payer MEDICARE ==
--- NOTE | 2023-06-20 18:30 | BD ---
EXAMINATION TYPE: Axial Bone Density DATE OF EXAM: 06/20/2023 CLINICAL HISTORY: 72 years old Female. ICD-10 CODE: M85.851 OTH DISRD OF BONE DENSITY AND STRUCTURE, R Height: 63 Weight: 106 FRAX RISK QUESTIONS: Alcohol (3 or more units per day): no Family History (Parent hip fracture): no Glucocorticoids (More than 3mos): no (Ex: prednisone, prednisolone, methylprednisolone, dexamethasone, and hydrocortisone). History of Fracture in Adulthood: yes Secondary Osteoporosis: 1. Type 1 Diabetes: no 2. Hyperthyroidism: no 3. Menopause before 45: no 4. Malnutrition: no 5. Chronic liver disease: no Rheumatoid Arthritis: no Current Tobacco Use: no RISK FACTORS HISTORY OF: Surgery to Spine/Hip(right/left)/Wrist (right/left): no Additional History: EXAM MEASUREMENTS: Bone mineral densitometry was performed using the [employer] System. Bone mineral density as measured about the Lumbar spine is: ----- L1-L4(G/cm2): 0.891 T Score Values are as follows: ----- L1: -2.3 ----- L2: -2.8 ----- L3: -2.5 ----- L4: -2.2 ----- L1-L4: -2.4 Z Score Values are as follows: ----- L1: -0.1 ----- L2: -0.5 ----- L3: -0.2 ----- L4: 0.1 ----- L1-L4: -0.1 Bone mineral density has: decreased -2.7 % since study of: 06.07.2021 Bone mineral density about the R hip (g/cm2): 0.809 Bone mineral density about the L hip (g/cm2): 0.808 T Score values are as follows: -----R Neck: -1.3 -----L Neck: -1.1 -----R Total: -1.6 -----L Total: -1.6 Z Score values are as follows: -----R Neck: 0.8 -----L Neck: 1.1 -----R Total: 0.4 -----L Total: 0.4 Bone mineral density has: increased 0.6 % since study of: 1.4.2021 FRAX%s: The graph provided illustrates a 13.1% chance for a major osteoporotic fx and a 2.0% chance f or the hips probability for fx in 10 years time. IMPRESSION: Osteopenia (T Score between -2.5 and -1). There is slightly increased risk of fracture and the patient may be considered for treatment. Re-Screen 2-5 years. NOTE: T-SCORE=SD OF THE YOUNG ADULT MEAN.
== END | disposition home or self-care (01) ==
LOC: RADBDWWP 14:15
PROVIDERS: ATTEND Internal Medicine
DX: M81.0 Age-related osteoporosis without current pathological fracture (principal); M85.89 Other specified disorders of bone density and structure, multiple sites
CPT/HCPCS: 77080

== ENCOUNTER 2023-07-08 10:41 | Emergency (ER) | payer MEDICARE ==
[2023-07-08 11:04] VITALS: RESP 18
--- NOTE | 2023-07-08 11:21 | ED ---
General Adult HPI - General Chief complaint: Abdominal Pain Stated complaint: abd/back pain Time Seen by Provider: 07/08/23 11:03 Source: patient, RN notes reviewed Mode of arrival: ambulatory Limitations: no limitations - History of Present Illness Initial comments: 72-year-old female presents to the emergency department for evaluation of abdominal pain. Patient states that this started around 2:30 AM. Pain is in her upper abdomen and radiates to her low back. Patient reports that it is worse with sitting down or walking. Admits to nausea with vomiting. - Related Data Home Medications Medication Instructions Recorded Confirmed Cholecalciferol [Vitamin D3 (25 2,000 unit PO BID 06/15/17 01/23/23 Mcg = 1000 Iu)] Calcium Carbonate/Vitamin D3 1 tab PO BID 08/19/20 01/23/23 [Calcium 500 mg-Vit D3 5 mcg (200 Unit)] Cyanocobalamin (Vitamin B-12) 1,000 mcg PO WE 02/14/22 01/23/23 [Vitamin B-12] Ezetimibe [Zetia] 10 mg PO DAILY 02/14/22 01/23/23 Hyoscyamine Sulfate [Hyoscyamine 0.125 mg SL DIRECTED PRN 02/14/22 01/23/23 Sulfate SL] Iron Tab 28 mg PO BID 02/14/22 01/23/23 Pantoprazole Sodium [Protonix] 40 mg PO QAM 02/14/22 01/23/23 Aspirin EC [Ecotrin Low Dose] 81 mg PO DAILY 01/16/23 01/23/23 Previous Rx's Medication Instructions Recorded Nitroglycerin Sl Tabs [Nitrostat] 0.4 mg SUBLINGUAL Q5M PRN #25 tab 04/22/18 HYDROcodone/APAP 5-325MG [[place] 5] 1 each PO Q6HR PRN #8 tab 07/08/23 Allergies Allergy/AdvReac Type Severity Reaction Status Date / Time atorvastatin [From Lipitor] Allergy Unknown Verified 07/08/23 10:55 cyclobenzaprine Allergy maeks Verified 07/08/23 10:55 headache worse fentanyl Allergy Unknown Verified 07/08/23 10:55 levofloxacin [From Levaquin] Allergy Unknown Verified 07/08/23 10:55 mirabegron [From Myrbetriq] Allergy Unknown Verified 07/08/23 10:55 prochlorperazine Allergy "made Verified 07/08/23 10:55 headache worse" rizatriptan Allergy made Verified 07/08/23 10:55 headache worse solifenacin Allergy Unknown Verified 07/08/23 10:55 Hjkojes-MEZ-IvP Reductase Allergy "arms hurt" Verified 07/08/23 10:55 Inhibitor Sulfa (Sulfonamide Allergy Unknown Verified 07/08/23 10:55 Antibiotics) zonisamide Allergy Swelling Verified 07/08/23 10:55 acetaminophen AdvReac ELEVATED Verified 07/08/23 10:55 [From Tylenol-Codeine #3] LIVER ENZYMES amoxicillin trihydrate AdvReac Chest Pain Verified 07/08/23 10:55 [From Augmentin] caffeine AdvReac Rapid Verified 07/08/23 10:55 Heart Rate codeine phosphate AdvReac Nausea & Verified 07/08/23 10:55 [From Tylenol-Codeine #3] Vomiting hydromorphone HCl AdvReac Chest Verified 07/08/23 10:55 [From Dilaudid] Pain,induced panic attack feeling morphine AdvReac Nausea & Verified 07/08/23 10:[address] potassium clavulanate AdvReac Chest Pain Verified 07/08/23 10:55 [From Augmentin] propoxyphene AdvReac Nausea & Verified 07/08/23 10:55 [From Darvocet-N 100] Vomiting rimegepant [From Nurtec ODT] AdvReac "HEADACHE Verified 07/08/23 10:55 WORSE"," burning sensation in head" Review of Systems ROS Statement: Those systems with pertinent positive or pertinent negative responses have been documented in the HPI. ROS Other: All systems not noted in ROS Statement are negative. Past Medical History Past Medical History: Chest Pain / Angina, GERD/Reflux, Hyperlipidemia, Pneumonia, Skin Disorder Additional Past Medical History / Comment(s): " feel full and can not eat", occ.palpatations, elevated pancreatic and liver enzymes,constipation, osteoporosis, eczema, "overactive bladder" "TIA years ago", History of Any Multi-Drug Resistant Organisms: None Reported Past Surgical History: Cholecystectomy, Heart Catheterization, Hernia Repair, Tubal Ligation Additional Past Surgical History / Comment(s): Whipple Procedure, Lipoma removed from left leg and under breasts, ERCP, pain injections to back, D&C, rt inguinal hernia with mesh Past Anesthesia/Blood Transfusion Reactions: Previous Problems w/ Anesthesia, Family History of Problems w/ Anesthesia, Postoperative Nausea & Vomiting (PONV) Additional Past Anesthesia/Blood Transfusion Reaction / Comment(s): states "had a cocktail type of anesthesia for pain injection to back and when coming out of anesthesia was awake but couldn't respond", daughter comes out crying Past Psychological History: No Psychological Hx Reported Smoking Status: Former smoker Past Alcohol Use History: None Reported Past Drug Use History: None Reported - Past Family History Brother(s) Family Medical History: Cancer, Myocardial Infarction ([place]) Additional Family Medical History / Comment(s): stomach cancer Sister(s) Family Medical History: Cancer Additional Family Medical History / Comment(s): lymphoma General Exam Limitations: no limitations General appearance: alert, in no apparent distress Head exam: Present: atraumatic, normocephalic, normal inspection Eye exam: Present: normal appearance, PERRL, EOMI. Absent: scleral icterus, conjunctival injection, periorbital swelling ENT exam: Present: normal exam, mucous membranes moist Respiratory exam: Present: normal lung sounds bilaterally. Absent: respiratory distress, wheezes, rales, rhonchi, stridor Cardiovascular Exam: Present: regular rate, normal rhythm, normal heart sounds. Absent: systolic murmur, diastolic murmur, rubs, gallop, clicks GI/Abdominal exam: Present: soft, tenderness (diffuse upper), normal bowel sounds. Absent: distended, guarding, rebound, rigid Extremities exam: Present: normal inspection, full ROM, normal capillary refill. Absent: tenderness, pedal edema, joint swelling, calf tenderness Back exam: Present: normal inspection. Absent: CVA tenderness (R), CVA tenderness (L) Neurological exam: Present: alert, oriented X3 Psychiatric exam: Present: normal affect, normal mood Skin exam: Present: warm, dry, intact, normal color. Absent: rash Course Vital Signs 07/08/23 07/08/23 07/08/23 10:52 12:40 15:00 Temperature 98.1 F 98.3 F Pulse Rate 72 72 63 Respiratory 18 18 18 Rate Blood Pressure 130/58 131/60 147/70 O2 Sat by Pulse 98 97 98 Oximetry Medical Decision Making - Medical Decision Making Was pt. sent in by a medical professional or institution (GENEVA Gorman, FRONT SERVICES AGENT, urgent care, hospital, or usp...) When possible be specific @ -No Did you speak to anyone other than the patient for history (EMS, parent, family, police, friend...)? What history was obtained from this source @ -No Did you review nursing and triage notes (agree or disagree)? Why? @ -I reviewed and agree with nursing and triage notes Were old charts reviewed (outside hosp., previous admission, EMS record, old EKG, old radiological studies, urgent care reports/EKG's, usp records)? Report findings @ -No old charts were reviewed Differential Diagnosis (chest pain, altered mental status, abdominal pain women, abdominal pain men, vaginal bleeding, weakness, fever, dyspnea, syncope, headache, dizziness, GI bleed, back pain, seizure, CVA, palpatations, mental health, musculoskeletal)? @ -Differential Abdominal Pain Women: Appendicitis, Cholecystitis, diverticulosis, ischemic bowel, pancreatitis, hepatitis, UTI, gastroenteritis, AAA, incarcerated hernia, bowel obstruction, constipation, inflammatory bowel, hepatitis, peptic ulcer disease, splenic infarction, perforated viscus, vulvitis, ovarian torsion, PID, kidney stone, placenta abruption, this is not meant to be an all-inclusive list EKG interpreted by me (3pts min.). @ -None X-rays interpreted by me (1pt min.). @ -None done CT interpreted by me (1pt min.). @ -CT abdomen pelvis obtained shows no acute intra-abdominal process U/S interpreted by me (1pt. min.). @ -None done What testing was considered but not performed or refused? (CT, X-rays, U/S, labs)? Why? @ -None What meds were considered but not given or refused? Why? @ -None Did you discuss the management of the patient with other professionals (professionals i.e. GENEVA Gorman, FRONT SERVICES AGENT, lab, RT, psych nurse, mental health social worker, hand coke drawer, teacher, school services officer, immigration case worker)? Give summary @ -No Was smoking cessation discussed for >3mins.? @ -No Was critical care preformed (if so, how long)? @ -No Were there social determinants of health that impacted care today? How? (Homelessness, low income, unemployed, alcoholism, drug addiction, transportation, low edu. Level, literacy, decrease access to med. care, assisted, rehab)? @ -No Was there de-escalation of care discussed even if they declined (Discuss DNR or withdrawal of care, Hospice)? DNR status @ -No What co-morbidities impacted this encounter? (DM, HTN, Smoking, COPD, CAD, Cancer, CVA, ARF, Chemo, Hep., AIDS, mental health diagnosis, sleep apnea, morbid obesity)? @ -None Was patient admitted / discharged? Hospital course, mention meds given and route, prescriptions, significant lab abnormalities, going to OR and other pertinent info. @ -Discharge. Patient presented to the emergency department for evaluation of upper abdominal pain x 1 day with nausea and vomiting. Patient did not want any pain medication or nausea medication on initial evaluation. Laboratory studies obtained.CBC shows normal WBC, hemoglobin 13.7; CMP essentially unremarkable; UA shows trace protein, 2+ ketones, moderate blood, 8 WBCs. Patient is not having any urinary symptoms at this time. COVID, influenza, RSV negative. CT abdomen pelvis obtained and shows no acute intra-abdominal process, endometrial prominence. Discussed this finding with the patient and advised to follow-up on outpatient basis for this. Send patient medication for pain and nausea. Patient will follow-up with her PCP. Return precautions discussed. Patient stable at time of discharge. Case discussed with Dr. Solorzano Undiagnosed new problem with uncertain prognosis? @ -No Drug Therapy requiring intensive monitoring for toxicity (Heparin, Nitro, Insulin, Cardizem)? @ -No Were any procedures done? @ -No Diagnosis/symptom? @ -abdominal pain Acute, or Chronic, or Acute on Chronic? @ -acute Uncomplicated (without systemic symptoms) or Complicated (systemic symptoms)? @ -uncomplicated Side effects of treatment? @ -No Exacerbation, Progression, or Severe Exacerbation? @ -No Poses a threat to life or bodily function? How? (Chest pain, [place], [place], pneumonia, PE, COPD, DKA, ARF, appy, cholecystitis, CVA, Diverticulitis, Homicidal, [place] icidal, threat to staff... and all critical care pts) @ -No - Lab Data Result diagrams: 07/08/23 11:35 07/08/23 11:35 Lab Results 07/08/23 07/08/23 07/08/23 Range/Units 11:35 11:35 11:35 WBC 6.1 (3.8-10.6) k/uL RBC 4.84 (3.80-5.40) m/uL Hgb 13.7 (11.4-16.0) gm/dL Hct 41.6 (34.0-46.0) % MCV 86.0 (80.0-100.0) fL MCH 28.4 (25.0-35.0) pg MCHC 33.0 (31.0-37.0) g/dL RDW 12.9 (11.5-15.5) % Plt Count 236 (150-450) k/uL MPV 9.0 Neutrophils % 87 % Lymphocytes % 9 % Monocytes % 2 % Eosinophils % 1 % Basophils % 0 % Neutrophils # 5.4 (1.3-7.7) k/uL Lymphocytes # 0.5 L (1.0-4.8) k/uL Monocytes # 0.1 (0-1.0) k/uL Eosinophils # 0.1 (0-0.7) k/uL Basophils # 0.0 (0-0.2) k/uL Sodium 137 (137-145) mmol/L Potassium 4.2 (3.5-5.1) mmol/L Chloride 107 (98-107) mmol/L Carbon Dioxide 22 (22-30) mmol/L Anion Gap 8 mmol/L BUN 17 (7-17) mg/dL Creatinine 0.45 L (0.52-1.04) mg/dL Est GFR (CKD-EPI)AfAm >90 (>60 ml/min/1.73 sqM) Est GFR (CKD-EPI)NonAf >90 (>60 ml/min/1.73 sqM) Glucose 94 (74-99) mg/dL Calcium 9.2 (8.4-10.2) mg/dL Total Bilirubin 0.7 (0.2-1.3) mg/dL AST 35 (14-36) U/L ALT 29 (4-34) U/L Alkaline Phosphatase 74 (38-126) U/L Total Protein 6.9 (6.3-8.2) g/dL Albumin 4.3 (3.5-5.0) g/dL Amylase 64 (30-110) U/L Lipase 12 L (23-300) U/L Urine Color Yellow Urine Appearance Clear (Clear) Urine pH 6.0 (5.0-8.0) Ur Specific [place] 1.025 (1.001-1.035) Urine Protein Trace H (Negative) Urine Glucose (UA) Negative (Negative) Urine Ketones 2+ H (Negative) Urine Blood Moderate H (Negative) Urine Nitrite Negative (Negative) Urine Bilirubin Negative (Negative) Urine Urobilinogen <2.0 (<2.0) mg/dL Ur Leukocyte Esterase Trace H (Negative) Urine RBC 38 H (0-5) /hpf Urine WBC 8 H (0-5) /hpf Ur Squamous Epith Cells 2 (0-4) /hpf Urine Bacteria Rare H (None) /hpf Urine Mucus Few H (None) /hpf Influenza Type A (PCR) (Not Detectd) Influenza Type B (PCR) (Not Detectd) RSV (PCR) (Not Detectd) SARS-CoV-2 (PCR) (Not Detectd) 07/08/23 Range/Units 11:35 WBC (3.8-10.6) k/uL RBC (3.80-5.40) m/uL Hgb (11.4-16.0) gm/dL Hct (34.0-46.0) % MCV (80.0-100.0) fL MCH (25.0-35.0) pg MCHC (31.0-37.0) g/dL RDW (11.5-15.5) % Plt Count (150-450) k/uL MPV Neutrophils % % Lymphocytes % % Monocytes % % Eosinophils % % Basophils % % Neutrophils # (1.3-7.7) k/uL Lymphocytes # (1.0-4.8) k/uL Monocytes # (0-1.0) k/uL Eosinophils # (0-0.7) k/uL Basophils # (0-0.2) k/uL Sodium (137-145) mmol/L Potassium (3.5-5.1) mmol/L Chloride (98-107) mmol/L Carbon Dioxide (22-30) mmol/L Anion Gap mmol/L BUN (7-17) mg/dL Creatinine (0.52-1.04) mg/dL Est GFR (CKD-EPI)AfAm (>60 ml/min/1.73 sqM) Est GFR (CKD-EPI)NonAf (>60 ml/min/1.73 sqM) Glucose (74-99) mg/dL Calcium (8.4-10.2) mg/dL Total Bilirubin (0.2-1.3) mg/dL AST (14-36) U/L ALT (4-34) U/L Alkaline Phosphatase (38-126) U/L Total Protein (6.3-8.2) g/dL Albumin (3.5-5.0) g/dL Amylase (30-110) U/L Lipase (23-300) U/L Urine Color Urine Appearance (Clear) Urine pH (5.0-8.0) Ur Specific [place] (1.001-1.035) Urine Protein (Negative) Urine Glucose (UA) (Negative) Urine Ketones (Negative) Urine Blood (Negative) Urine Nitrite (Negative) Urine Bilirubin (Negative) Urine Urobilinogen (<2.0) mg/dL Ur Leukocyte Esterase (Negative) Urine RBC (0-5) /hpf Urine WBC (0-5) /hpf Ur Squamous Epith Cells (0-4) /hpf Urine Bacteria (None) /hpf Urine Mucus (None) /hpf Influenza Type A (PCR) Not Detected (Not Detectd) Influenza Type B (PCR) Not Detected (Not Detectd) RSV (PCR) Not Detected (Not Detectd) SARS-CoV-2 (PCR) Not Detected (Not Detectd) Disposition Clinical Impression: Abdominal pain Disposition: HOME SELF-CARE Condition: Stable Instructions (If sedation given, give patient instructions): Abdominal Pain (ED) Additional Instructions: Please follow up with your primary care provider. Return to the emergency department for new or worsening symptoms. Prescriptions: HYDROcodone/APAP 5-325MG [[place] 5] 1 each PO Q6HR PRN #8 tab PRN Reason: Pain Is patient prescribed a controlled substance at d/c from ED?: No Referrals: Eric Suh MD [Primary Care Provider] - 1-2 days
[2023-07-08 12:20] LABS: Basophils % (A) 0 %; Eosinophils # (A) 0.1 k/uL (0-0.7); Eosinophils % (A) 1 %; HCT 41.6 % (34.0-46.0); HGB 13.7 gm/dL (11.4-16.0); Lymphocytes # (A) 0.5 k/uL (1.0-4.8); Lymphocytes % (A) 9 %; MCH 28.4 pg (25.0-35.0); Monocytes # (A) 0.1 k/uL (0-1.0); Monocytes % (A) 2 %; Neutrophils # (A) 5.4 k/uL (1.3-7.7); Neutrophils % (A) 87 %; Platelet Count 236 k/uL (150-450); RBC 4.84 m/uL (3.80-5.40); RDW 12.9 % (11.5-15.5); WBC 6.1 k/uL (3.8-10.6)
[2023-07-08 12:24] LABS: Appearance,Urine Clear (Clear); Bacteria,Urine Rare /hpf; Bilirubin,Urine Negative (Negative); Blood,Urine Moderate (Negative); Color,Urine Yellow; Glucose,Urine (UA) Negative (Negative); Ketones,Urine 2+ (Negative); Leukocyte Esterase,Urine Trace (Negative); Mucus,Urine Few /hpf; Nitrite,Urine Negative (Negative); Protein,Urine Trace (Negative); RBC,Urine 38 /hpf (0-5); Specific Gravity,Urine 1.025 (1.001-1.035); Squamous Epithelial Cell,Urine 2 /hpf (0-4); Urobilinogen,Urine <2.0 mg/dL (<2.0); WBC,Urine 8 /hpf (0-5)
[2023-07-08 13:07] LABS: ALT 29 U/L (4-34); AST 35 U/L (14-36); African American GFR (CKD) >90 (>60 ml/min/1.73 sqM); Albumin 4.3 g/dL (3.5-5.0); Alkaline Phosphatase 74 U/L (38-126); Amylase 64 U/L (30-110); Anion Gap 8 mmol/L; Blood Urea Nitrogen 17 mg/dL (7-17); Calcium 9.2 mg/dL (8.4-10.2); Carbon Dioxide 22 mmol/L (22-30); Chloride 107 mmol/L (98-107); Glucose 94 mg/dL (74-99); Lipase 12 U/L (23-300); Non-African American GFR(CKD) >90 (>60 ml/min/1.73 sqM); Potassium 4.2 mmol/L (3.5-5.1); Sodium 137 mmol/L (137-145); Total Bilirubin 0.7 mg/dL (0.2-1.3); Total Protein 6.9 g/dL (6.3-8.2)
--- NOTE | 2023-07-08 14:02 | CT ---
EXAMINATION TYPE: CT abdomen pelvis w con DATE OF EXAM: 07/08/2023 COMPARISON: 08/09/2021 HISTORY: RLQ pain CT DLP: 481.1 mGycm CONTRAST: CT scan of the abdomen and pelvis is performed without Oral Contrast and with IV Contrast, patient in jected with 100 mL of Isovue 300. FINDINGS: LUNG BASES-: No visible nodule. No infiltrate. LIVER/GB: Cholecystectomy changes with pneumobilia seen. There is evidence of mild hepatic steatosis. No space occupying hepatic lesion. Biliary tree is of normal caliber. PANCREAS: No inflammation. No distinct mass. SPLEEN: No splenic enlargement. No lesion seen. ADRENALS: No nodule. No thickening. KIDNEYS/BLADDER: No hydronephrosis. No nephrolithiasis. Renal cystic changes noted. Urinary bladder grossly unremarkable. BOWEL: Normal appendix. Normal bowel caliber. No inflammation. GENITAL ORGANS: Prominence of the endometrium. Consider direct visualization. LYMPH NODES: No greater than 1cm abdominal or pelvic lymph nodes are appreciated. AORTA: No significant abnormality. OSSEOUS STRUCTURES: No significant abnormality is seen. OTHER: No significant additional abnormality is seen. IMPRESSION: 1. No acute findings seen. 2. Prominence of the endometrium. Consider direct visualization.
[2023-07-08] MEDS ORDERED: ONDANSETRON 4 MG ODT STARTER PACK 2 TAB BTL PO STA (14:29)
[2023-07-08 15:13] VITALS: BP 147/70; PULSE 63; TEMP 98.3
== END 2023-07-08 15:08 | disposition home or self-care (01) ==
LOC: EC 10:41
DX: R10.9 Unspecified abdominal pain (principal); K21.9 Gastro-esophageal reflux disease without esophagitis; Z79.899 Other long term (current) drug therapy; Z79.82 Long term (current) use of aspirin; Z88.0 Allergy status to penicillin; Z88.5 Allergy status to narcotic agent; Z88.6 Allergy status to analgesic agent; Z88.8 Allergy status to other drugs, medicaments and biological substances; Z87.891 Personal history of nicotine dependence; Z20.822 Contact with and (suspected) exposure to COVID-19
CPT/HCPCS: 36415; 80053; 82150; 83690; 85025; 81001; 87636; 74177; 99284; S0119; Q9967

== ENCOUNTER → 2023-07-12 | Outpatient (CLI) | payer MEDICARE ==
[2023-07-12] MEDS: SODIUM CHLORIDE 0.9% 500 ML 500 ML in EMPTY BAG 1 BAG IV PRN (09:27)
[2023-07-12 09:28] VITALS: BP 139/79; PULSE 60; RESP 16; TEMP 97.5
[2023-07-12] MEDS: ZOLEDRONIC ACID 5 MG in SODIUM CHLORIDE 0.9% 100 ML IV NR (09:28)
== END ==
LOC: PROCWHC3 08:59
PROVIDERS: ATTEND Internal Medicine
DX: M81.0 Age-related osteoporosis without current pathological fracture (principal)
CPT/HCPCS: 96365; J3489

== ENCOUNTER → 2023-07-27 | Outpatient (CLI) | payer MEDICARE ==
--- NOTE | 2023-07-27 18:33 | US ---
EXAMINATION TYPE: US pelvis complete transvag DATE OF EXAM: 07/27/2023 COMPARISON: NONE CLINICAL INDICATION: Female, 72 years old with history of N85.00 ENDOMETRIAL HYPERPLASIA, UNSPECIFIED ; endometrial hyperplasia TECHNIQUE: Transvaginal (TV) and Transabdominal (TA) . EXAM MEASUREMENTS: Uterus: 6.5 x 2.4 x 4.7 cm Endometrial Stripe: 0.4 cm Left Ovary: 2.0 x 1.0 x 2.5 cm 1. Uterus: Anteverted wnl 2. Endometrium: wnl 3. Right Ovary: Obscured by overlying bowel gas 4. Left Ovary: wnl 5. Bilateral Adnexa: wnl 6. Posterior cul-de-sac: wnl IMPRESSION: 1. No evidence for acute process. 2. Endometrium within normal limits for thickness.
== END | disposition home or self-care (01) ==
LOC: RADUSWWP 16:17
PROVIDERS: ATTEND Internal Medicine
DX: N85.00 Endometrial hyperplasia, unspecified (principal)
CPT/HCPCS: 76830; 76856

== ENCOUNTER → 2023-08-20 | Outpatient (CLI) | payer MEDICARE ==
--- NOTE | 2023-08-22 10:00 | MM ---
Reason for Exam: Screening (asymptomatic). Last screening mammogram was performed 12 month(s) ago. Patient History: Menarche at age 14. First Full-Term at age 21. Postmenopausal. Patient has history of breast feeding. Hormonal Contraceptives for 1 year from age 21 until age 22. 02/18/2015, US discontinued breast bx LT on the left side. Risk Values: Estella 5 year model risk: 1.6%. NCI Lifetime model risk: 4.3%. Prior Study Comparison: 07/05/2020 Bilateral Screening Mammogram, [facility]. 08/17/2021 Bilateral Screening Mammogram, [facility]. 08/18/2022 Bilateral MG 3D screening mammo w/cad, [facility]. Tissue Density: There are scattered areas of fibroglandular density. Findings: Analyzed By CAD. There is no suspicious group of microcalcifications or new suspicious mass. Benign-appearing calcifications bilaterally. Overall Assessment: Benign, BI-RAD 2 Management: Screening Mammogram of both breasts in [address] [facility] will attempt to contact patient to return for supplemental views and ultrasound if indicated. Patient should continue monthly self-breast exams. A clinical breast exam by your physician is recommended on an annual basis. This exam should not preclude additional follow-up of suspicious palpable abnormalities. Note on Estella scores and lifetime risk: 1. A Estella score greater than 3% is considered moderate risk. If this is the case, consider specialist referral to assess eligibility for a risk reducing agent. 2. If overall lifetime risk for the development of breast cancer is 20% or higher, the patient may qualify for future screening with alternating mammogram and breast MRI. Electronically signed and approved by: Ted Abarca DO
== END | disposition home or self-care (01) ==
LOC: RADMAMWWP 08:37
PROVIDERS: ATTEND Internal Medicine
DX: Z12.31 Encounter for screening mammogram for malignant neoplasm of breast (principal); M85.851 Other specified disorders of bone density and structure, right thigh; Z78.0 Asymptomatic menopausal state
CPT/HCPCS: 77063; 77067

== ENCOUNTER → 2023-09-03 | Outpatient (CLI) | payer MEDICARE ==
[2023-09-03 17:06] LABS: ALT 31 U/L (8-44); AST 29 U/L (13-35); Albumin 4.5 g/dL (3.8-4.9); Albumin/Globulin Ratio 1.96 Ratio (1.60-3.17); Alkaline Phosphatase 71 U/L (41-126); BUN/Creat Ratio 30.33 Ratio (12.00-20.00); Blood Urea Nitrogen 18.2 mg/dL (9.0-27.0); Calcium 9.3 mg/dL (8.7-10.3); Carbon Dioxide 28.3 mmol/L (21.6-31.8); Chloride 106 mmol/L (96-109); Chol/HDL Ratio 2.25 Ratio; Globulin 2.3 g/dL (1.6-3.3); Glucose 93 mg/dL (70-110); LDL Cholesterol,Calculated 49.7 mg/dL (0.0-131.0); Potassium 4.2 mmol/L (3.5-5.5); Sodium 144 mmol/L (135-145); Total Bilirubin 0.4 mg/dL (0.3-1.2); Total Protein 6.8 g/dL (6.2-8.2); VLDL Calculation 13.72 mg/dL (5.00-40.00)
== END | disposition home or self-care (01) ==
LOC: LABWHC1 09:07
PROVIDERS: ATTEND Internal Medicine Interventional Cardiology
DX: E78.2 Mixed hyperlipidemia (principal)
CPT/HCPCS: 36415; 80053; 80061

== ENCOUNTER 2024-01-16 08:30 | Day surgery (SDC) | payer MEDICARE ==
[2024-01-16] MEDS ORDERED: PROPOFOL 10 MG/ML 20 ML VIAL IV ONE (08:32)
--- NOTE | 2024-01-25 15:53 | OP ---
OPERATIVE REPORT DATE OF SERVICE : 01/16/2024 REQUESTING PHYSICIAN: Dr. Suh. BRIEF HISTORY: The patient is a 73-year-old pleasant white female scheduled for a colonoscopy as a part of evaluation with prior history of colon polyps. Her last colonoscopy was 5 years ago. PROCEDURE PERFORMED: Colonoscopy. PREOPERATIVE DIAGNOSIS: History of colon polyps/tubular adenoma. ANESTHESIA: IV sedation per Anesthesia. DESCRIPTION OF PROCEDURE: After informed consent was obtained from the patient, she was brought into the endoscopy unit. IV conscious sedation was administered by Anesthesia on continuous monitoring. Initial digital rectal examination was normal. The Olympus CF-190 video colonoscope was then into the rectum, gradually advanced into the cecum. The prep was excellent. Mucosa of the cecum, ascending colon, transverse colon, descending colon, sigmoid colon, and rectum appeared normal. In the rectum, retroflexion was performed. Small internal hemorrhoids were seen. Scattered sigmoid diverticulosis noted. The patient tolerated the procedure well. IMPRESSION: 1. Scattered sigmoid diverticulosis. 2. No evidence of colorectal neoplasia. RECOMMENDATIONS: Findings of this examination were discussed with the patient as well as the family. She was advised to have a repeat screening colonoscopy at age 81. MMODL / IJN: [id number] /
== END 2024-01-16 09:20 ==
LOC: ORWHC2ENDO 08:30
PROVIDERS: ATTEND Internal Medicine Gastroenterology
DX: Z86.010 Personal history of colon polyps
CPT/HCPCS: 45378

== ENCOUNTER → 2024-02-12 | Outpatient (CLI) | payer MEDICARE ==
[2024-02-12 10:22] LABS: ALT 25 U/L (8-44); AST 25 U/L (13-35); Chol/HDL Ratio 2.15 Ratio; LDL Cholesterol,Calculated 45.8 mg/dL (0.0-131.0)
== END | disposition home or self-care (01) ==
LOC: LABWHC1 07:34
PROVIDERS: ATTEND Internal Medicine Interventional Cardiology
DX: E78.2 Mixed hyperlipidemia (principal)
CPT/HCPCS: 36415; 80061; 84450; 84460

== ENCOUNTER → 2024-04-25 | Outpatient (CLI) | payer MEDICARE ==
--- NOTE | 2024-04-26 10:46 | CT ---
EXAMINATION TYPE: CT brain wo con DATE OF EXAM: 04/25/2024 COMPARISON: 06/08/2010 CLINICAL INDICATION: Female, 73 years old with history of R51.9 HEADACHE, UNSPECIFIED; PHH, Sharp hea dache like pain on left side of head, also with numbness/burning feeling and a feeling like being in a tunnel. TECHNIQUE: CT scan of the head is performed without contrast. CT DLP: 1047.[address] CTDI: mGy Automated exposure control for dose reduction was used. FINDINGS: There is no acute intracranial hemorrhage or midline shift identified. There is diffuse v entricular and sulcal prominence consistent with diffuse age-related cerebral atrophy. There is low- attenuation in the periventricular white matter consistent with chronic small vessel ischemic change. The globes are intact and the visualized sinuses are clear. IMPRESSION: No acute intracranial hemorrhage or midline shift. There is diffuse age-related cerebra l atrophy and chronic small vessel ischemic change noted. [facility], , 04/26/2024 10:44 AM
== END | disposition home or self-care (01) ==
LOC: RADCTMAIN 16:05
PROVIDERS: ATTEND Internal Medicine
DX: I67.82 Cerebral ischemia (principal); G31.89 Other specified degenerative diseases of nervous system
CPT/HCPCS: 70450

== ENCOUNTER → 2024-05-27 | Outpatient (CLI) | payer MEDICARE ==
--- NOTE | 2024-05-27 11:40 | MR ---
EXAMINATION TYPE: MR brain wo/w con DATE OF EXAM: 05/27/2024 11:03 AM COMPARISON: CT scan 04/25/2024, MRI 07/21/2020 CLINICAL INDICATION: Female, 73 years old with history of R42 vertigo, shooting pain left side of hea d, vertigo IV Contrast: 4.5 cc Gadobutrol (None if empty) TECHNIQUE: Multiplanar, multisequence images of the brain and brainstem is performed without and with IV contras t, utilizing 4.5 mL intravenous Gadobutrol . FINDINGS: Diffusion weighted images demonstrate no evidence of a recent infarct or other diffusion ab normality. Mild degenerative change. There is patchy areas of abnormal signal throughout the white matter bilate rally mildly progressed from prior exam. Midline structures demonstrate normal morphology. The craniocervical junction appears within normal limits. Post contrast images demonstrate no abnorm al enhancement. The dural venous sinuses appear patent. Mild chronic sinusitis and the globes are int act. IMPRESSION: 1. Degenerative changes with diffuse white matter findings which are mildly progressed comparing the basis of remote microvascular ischemia or demyelinating process. Correlate clinically. [facility], , 05/27/2024 11:38 AM
== END | disposition home or self-care (01) ==
LOC: RADMRIMAIN 09:42
PROVIDERS: ATTEND Internal Medicine
DX: I67.82 Cerebral ischemia (principal); R42 Dizziness and giddiness
CPT/HCPCS: 70553; A9585

== ENCOUNTER → 2024-06-24 | Outpatient (CLI) | payer MEDICARE ==
[2024-06-24 09:13] LABS: African American GFR (CKD) >90 (>60 ml/min/1.73 sqM); Blood Urea Nitrogen 18 mg/dL (7-17); Non-African American GFR(CKD) >90 (>60 ml/min/1.73 sqM)
--- NOTE | 2024-06-24 14:18 | CT ---
EXAMINATION TYPE: CT urogram wo/w con DATE OF EXAM: 06/24/2024 HISTORY: Hematuria CT DLP: 839.60mGycm Automated Exposure Control for Dose Reduction was Utilized. CONTRAST: CT scan of the abdomen and pelvis is performed without oral and without and with IV Contrast, patient injected with 100 mL of Isovue 370. Urogram protocol with 3-D reconstructed images created on an ind [employer] workstation and reviewed. COMPARISON: Most recent CT July 08, 2023 FINDINGS: KUB: No renal calculi on noncontrast images. Postcontrast images show symmetric cortical medullary u ptake and excretion with mild right greater than left bilateral hydronephrosis. There is 1.9 cm simpl e appearing thin-walled cyst in the upper pole right kidney laterally axial image 20 series 7. No lef t-sided renal solid or cystic mass. Contrast opacification of the bilateral ureters to the bladder is seen. No obstructing mass or calculus. Urinary bladder shows no intraluminal mass or suspicious wall thickening. LUNG BASES: No significant abnormality is appreciated. LIVER/GB: Cholecystectomy clips are redemonstrated. Central pneumobilia again seen. PANCREAS: No significant abnormality is seen. SPLEEN: No significant abnormality is seen. ADRENALS: No significant abnormality is seen. BOWEL: Suboptimal evaluation of bowel without enteric contrast and patient having little internal fat . No abnormal small or large bowel dilatation. Unremarkable appendix. Surgical changes in the distal stomach are redemonstrated. UTERUS/ADNEXA: Anteverted uterus. Prominent draining ovarian veins bilaterally are redemonstrated. LYMPH NODES: No greater than 1cm abdominal or pelvic lymph nodes are appreciated. OSSEOUS STRUCTURES: No significant abnormality is seen. OTHER: Surgical changes right groin region from hernia repair surgery are redemonstrated. Mild calcif ied plaque of the aorta extends into branch vessels. IMPRESSION: Source of hematuria not identified. No significant change from most recent prior CT. [facility], , 06/24/2024 2:16 PM
== END | disposition home or self-care (01) ==
LOC: RADCTMAIN 08:31
PROVIDERS: ATTEND Internal Medicine
DX: R31.9 Hematuria, unspecified (principal); Z98.890 Other specified postprocedural states; N85.4 Malposition of uterus
CPT/HCPCS: 82565; 84520; 74178; 36415; 74400; Q9967

== ENCOUNTER → 2024-10-17 | Outpatient (CLI) | payer MEDICARE ==
--- NOTE | 2024-10-17 07:25 | MM ---
Reason for Exam: Screening (asymptomatic). Last mammogram was performed 1 year(s) and 2 month(s) ago. Patient History: Menarche at age 14. First Full-Term at age 21. Postmenopausal. Patient has history of breast feeding. Hormonal Contraceptives for 1 year from age 21 until age 22. 02/18/2015, US discontinued breast bx LT on the left side. Risk Values: Estella 5 year model risk: 1.6%. NCI Lifetime model risk: 3.9%. Prior Study Comparison: 08/17/2021 Bilateral Screening Mammogram, [facility]. 08/18/2022 Bilateral MG 3D screening mammo w/cad, [facility]. 08/20/2023 Bilateral MG 3D screening mammo w/cad, [facility]. Tissue Density: The breasts are heterogeneously dense, which may obscure small masses. Findings: Analyzed By CAD. Benign-appearing vascular calcifications bilaterally are redemonstrated. There is no suspicious group of microcalcifications or new suspicious mass in either breast. Overall Assessment: Benign, BI-RAD 2 Management: Screening Mammogram of both breasts in 1 year. . Patient should continue monthly self-breast exams. A clinical breast exam by your physician is recommended on an annual basis. This exam should not preclude additional follow-up of suspicious palpable abnormalities. Note on Estella scores and lifetime risk: 1. A Estella score greater than 3% is considered moderate risk. If this is the case, consider specialist referral to assess eligibility for a risk reducing agent. 2. If overall lifetime risk for the development of breast cancer is 20% or higher, the patient may qualify for future screening with alternating mammogram and breast MRI. [facility], , 10/17/2024 7:22 AM. Electronically signed and approved by: Jeremías Smith M.D.
== END | disposition home or self-care (01) ==
LOC: RADMAMWWP 06:52
PROVIDERS: ATTEND Internal Medicine
DX: Z12.31 Encounter for screening mammogram for malignant neoplasm of breast (principal); R92.333 Mammographic heterogeneous density, bilateral breasts; R92.1 Mammographic calcification found on diagnostic imaging of breast; Z78.0 Asymptomatic menopausal state; Z92.0 Personal history of contraception
CPT/HCPCS: 77063; 77067

== ENCOUNTER → 2024-12-04 | Outpatient (CLI) | payer MEDICARE ==
--- NOTE | 2024-12-04 13:10 | MR ---
EXAMINATION TYPE: MR knee RT wo con DATE OF EXAM: 12/04/2024 10:56 AM COMPARISON: None. 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 FINDINGS: There is minimal joint fluid. There is no bone contusion or fracture. The articular cartilages are well preserved with exception of mild chondromalacia patella. There are no osteochondral lesions. The medial and lateral collateral ligaments are intact. The cruciate ligaments are intact. There is no meniscal tear. The quadriceps and patellar tendons are normal. IMPRESSION: Mild chondromalacia patella with no other significant abnormality seen. There is no meniscal or liga mentous injury. [facility], Workstation: NOHELIA 12/04/2024 1:07 PM
== END | disposition home or self-care (01) ==
LOC: RADMRIMAIN 09:46
PROVIDERS: ATTEND Internal Medicine
DX: M23.51 Chronic instability of knee, right knee (principal); M22.41 Chondromalacia patellae, right knee